=== PATIENT | male | born 1985 | race Caucasian/White ===

== ENCOUNTER 2024-09-18 09:06 | Inpatient (IN) | payer BC ==
[2024-09-18] MEDS ORDERED: LORazepam 0.5 MG TAB PO PRN (09:09)
--- NOTE | 2024-09-18 09:12 | ED ---
Recheck HPI - General Stated Complaint: withdrawl symptoms Time Seen by Provider: 09/18/24 09:09 Source: RN notes reviewed, old records reviewed Mode of arrival: ambulatory Limitations: no limitations - History of Present Illness Initial Comments: This is a 38-year-old male unable to give history secondary to clinical condition and excepted in transfer from outside facility for active DTs. Patient is hallucinating actively here in the ER, diaphoretic tachycardic and hypertensive Per EMS patient was given Ativan prior to her transfer MD Complaint: other -: unknown Returns Today for: persistent/worsening pain related to initial visit Symptoms Since Prior Visit: worsening pain Associated Symptoms: none Treatments Prior to Arrival: other - Related Data Home Medications Medication Instructions Recorded Confirmed Gabapentin [Neurontin] 300 mg PO TID 09/18/24 09/21/24 cloNIDine HCL [Catapres] 0.2 mg PO BID 09/18/24 09/21/24 hydrOXYzine pamoate [Vistaril] 50 mg PO Q6H PRN 09/18/24 09/21/24 Previous Rx's Medication Instructions Recorded Folic Acid 1 mg PO DAILY tab 09/21/24 Multivitamins, Thera [Multivitamin 1 each PO DAILY tab 09/21/24 (formulary)] Thiamine [Vitamin B-1] 100 mg PO DAILY tab 09/21/24 chlordiazePOXIDE HCl [Librium] 20 mg PO TID cap 09/21/24 Allergies Allergy/AdvReac Type Severity Reaction Status Date / Time No Known Allergies Allergy Verified 09/18/24 10:13 Review of Systems ROS Statement: Those systems with pertinent positive or pertinent negative responses have been documented in the HPI. ROS Other: All systems not noted in ROS Statement are negative. General Exam General appearance: alert, in no apparent distress Head exam: Present: atraumatic, normocephalic, normal inspection Eye exam: Present: normal appearance, PERRL, EOMI. Absent: scleral icterus, conjunctival injection, periorbital swelling ENT exam: Present: normal exam, mucous membranes moist Neck exam: Present: normal inspection. Absent: tenderness, meningismus, lymphadenopathy Respiratory exam: Present: normal lung sounds bilaterally. Absent: respiratory distress, wheezes, rales, rhonchi, stridor Cardiovascular Exam: Present: regular rate, normal rhythm, normal heart sounds. Absent: systolic murmur, diastolic murmur, rubs, gallop, clicks GI/Abdominal exam: Present: soft, normal bowel sounds. Absent: distended, tenderness, guarding, rebound, rigid Extremities exam: Present: normal inspection, full ROM, normal capillary refill. Absent: tenderness, pedal edema, joint swelling, calf tenderness Back exam: Present: normal inspection Neurological exam: Present: alert, oriented X3, CN II-XII intact Psychiatric exam: Present: normal affect, normal mood Skin exam: Present: warm, dry, intact, normal color. Absent: rash Course Vital Signs 09/18/24 09/18/24 09/18/24 09:07 10:01 10:04 Temperature 98.4 F Pulse Rate 101 H 118 H Respiratory 20 34 H 30 H Rate Blood Pressure 151/101 167/107 Blood Pressure [Right Arm] O2 Sat by Pulse 96 97 Oximetry 09/18/24 09/18/24 09/18/24 10:18 10:22 11:23 Temperature Pulse Rate 101 H 100 Respiratory 24 22 Rate Blood Pressure 152/95 137/101 Blood Pressure [Right Arm] O2 Sat by Pulse 92 L 95 99 Oximetry 09/18/24 09/18/24 09/18/24 11:48 12:47 13:15 Temperature 97.5 F L Pulse Rate 135 H 119 H Respiratory 30 H 22 26 H Rate Blood Pressure 163/118 151/89 Blood Pressure 168/112 [Right Arm] O2 Sat by Pulse 95 99 98 Oximetry 09/18/24 09/18/24 09/18/24 14:21 15:07 16:15 Temperature Pulse Rate 75 74 68 Respiratory 20 20 18 Rate Blood Pressure 150/103 143/89 143/103 Blood Pressure [Right Arm] O2 Sat by Pulse 95 98 97 Oximetry 09/18/24 09/18/24 09/18/24 17:08 18:08 20:00 Temperature 98.2 F 98.9 F Pulse Rate 65 62 Respiratory 26 H 20 12 Rate Blood Pressure 160/107 155/108 Blood Pressure 168/114 [Right Arm] O2 Sat by Pulse 97 99 99 Oximetry - Reevaluation(s) Reevaluation #1: 09/18/24 10:52 Medical records reviewed Reevaluation #2: 09/18/24 10:52 Patient symptoms difficult to control Given multiple doses of Ativan and Valium improving Given dose of phenobarbital improved Reevaluation #3: 04/02/25 10:52 Patient informed of results Reevaluation #4: Was pt. sent in by a medical professional or institution ([facility], ENTERPRISE ENGINEER, urgent care, hospital, or [facility]...) When possible be specific @ -no Did you speak to anyone other than the patient for history (EMS, parent, family, police, friend...)? What history was obtained from this source @ -no Did you review nursing and triage notes (agree or disagree)? Why? @ -agree Are old charts reviewed (outside hosp., previous admission, EMS record, old EKG, old radiological studies, urgent care reports/EKG's, [facility] records)? Report findings @ -yes Differential Diagnosis (chest pain, altered mental status, abdominal pain women, abdominal pain men, vaginal bleeding, weakness, fever, dyspnea, syncope, headache, dizziness, GI bleed, back pain, seizure, CVA, palpatations, mental health, musculoskeletal)? @ -prior EKG interpreted by me (3pts min.). @ -no X-rays interpreted by me (1pt min.). @ -no CT interpreted by me (1pt min.). @ -no U/S interpreted by me (1pt. min.). @ -no What testing was considered but not performed or refused? (CT, X-rays, U/S, labs)? Why? @ -none What meds were considered but not given or refused? Why? @ -none Did you discuss the management of the patient with other professionals (professionals i.e. DAMI Sow, ENTERPRISE ENGINEER, lab, RT, psych nurse, social and human services assistant, weapons specialist, teacher, bank officer, complex case manager)? Give summary @ -no Was smoking cessation discussed for >3mins.? @ -no Was critical care preformed (if so, how long)? @ -yes31 Were there social determinants of health that impacted care today? How? (Homelessness, low income, unemployed, alcoholism, drug addiction, transportatio n, low edu. Level, literacy, decrease access to med. care, penitentiary, rehab)? @ -none Was there de-escalation of care discussed even if they declined (Discuss DNR or withdrawal of care, Hospice)? DNR status @ -no What co-morbidities impacted this encounter? (DM, HTN, Smoking, COPD, CAD, Cancer, CVA, ARF, Chemo, Hep., AIDS, mental health diagnosis, sleep apnea, morbid obesity)? @ -none Was patient admitted / discharged? Hospital course, mention meds given and route, prescriptions, significant lab abnormalities, going to OR and other pertinent info. @ -38 male persistent and severe alcohol withdrawal delirium tremens will admit to ICU for further medical management Admitted Undiagnosed new problem with uncertain prognosis? @ -no Drug Therapy requiring intensive monitoring for toxicity (Heparin, Nitro, Insulin, Cardizem)? @ -no Were any procedures done? @ -no Diagnosis/symptom? @ -Delirium tremens Acute, or Chronic, or Acute on Chronic? @ -Acute Uncomplicated (without systemic symptoms) or Complicated (systemic symptoms)? @ -Complicated Side effects of treatment? @ -no Exacerbation, Progression, or Severe Exacerbation? @ -exacerbation Poses a threat to life or bodily function? How? (Chest pain, [place], [place], pneumonia, PE, COPD, DKA, ARF, appy, cholecystitis, CVA, Diverticulitis, Homicidal, Suicidal, threat to staff... and all critical care pts) @ -yes severe withdrawal Reevaluation #5: Differential Altered Mental Status: Hypoglycemia, DKA, hypercapnia, ETOH, overdose, CO poisoning, trauma, myxedema coma, HTN encephalopathy, infection, encephalitis, psychosis, intercranial hemorrhage, hepatic encephalopathy, meningitis, CVA, this is not meant to be an all-inclusive list - Consultations Consultation #1: Spoke with sound who agrees to admit this patient Procedures - Restraint - Face to Face Restraint Occurrence 1 Patient's Immediate Situation: Endangers self safety, Endangers others' safety, Endangers staff safety, Violent behavior Patient's Medical & Behavioral Condition: Awake, Anxious, Depressed Need to Continue or Terminate Restraint or Seclusion: Continue Face to Face Eval of Restraint Date: 09/18/24 Face to Face Eval of Restraint Time: 09:36 Restraint Occurrence 2 Patient's Immediate Situation: Endangers self safety, Endangers others' safety, Endangers staff safety, Violent behavior Patient's Reaction to the Intervention: Uncooperative, Angry, Anxious, Bizarre Patient's Medical & Behavioral Condition: Agitated Need to Continue or Terminate Restraint or Seclusion: Continue Face to Face Eval of Restraint Date: 09/18/24 Face to Face Eval of Restraint Time: 11:36 Medical Decision Making - Medical Decision Making 38 male to be admitted for severe alcohol withdrawal and DTs with active hallu cinations and delirium - Lab Data Result diagrams: 09/21/24 02:54 09/21/24 02:54 Lab Results 09/18/24 09/18/24 09/18/24 Range/Units 09:27 09:27 09:27 WBC 9.9 (3.8-10.6) k/uL RBC 4.25 L (4.30-5.90) m/uL Hgb 14.3 (13.0-17.5) gm/dL Hct 41.7 (39.0-53.0) % MCV 98.0 (80.0-100.0) fL MCH 33.6 (25.0-35.0) pg MCHC 34.3 (31.0-37.0) g/dL RDW 11.7 (11.5-15.5) % Plt Count 119 L (150-450) k/uL MPV 7.9 Neutrophils % 76 % Lymphocytes % 12 % Monocytes % 8 % Eosinophils % 2 % Basophils % 0 % Neutrophils # 7.5 (1.3-7.7) k/uL Lymphocytes # 1.2 (1.0-4.8) k/uL Monocytes # 0.8 (0-1.0) k/uL Eosinophils # 0.2 (0-0.7) k/uL Basophils # 0.0 (0-0.2) k/uL Sodium 138 (137-145) mmol/L Potassium 3.7 (3.5-5.1) mmol/L Chloride 104 (98-107) mmol/L Carbon Dioxide 25 (22-30) mmol/L Anion Gap 9 mmol/L BUN 10 (9-20) mg/dL Creatinine 0.63 L (0.66-1.25) mg/dL Est GFR (CKD-EPI)AfAm >90 (>60 ml/min/1.73 sqM) Est GFR (CKD-EPI)NonAf >90 (>60 ml/min/1.73 sqM) Glucose 103 H (74-99) mg/dL Calcium 9.1 (8.4-10.2) mg/dL Phosphorus 2.7 (2.5-4.5) mg/dL Magnesium 2.2 (1.6-2.3) mg/dL Total Bilirubin 1.6 H (0.2-1.3) mg/dL AST 100 H (17-59) U/L ALT 55 H (4-49) U/L Alkaline Phosphatase 64 (38-126) U/L Ammonia 13 (<30) umol/L Total Protein 7.2 (6.3-8.2) g/dL Albumin 4.3 (3.5-5.0) g/dL Lipase 329 H (23-300) U/L Serum Alcohol <10 mg/dL - EKG Data -: EKG Interpreted by Me (EKG is sinus 92 AZ 135 QRS 94 QTc 406) Critical Care Time Critical Care Time: Yes Total Critical Care Time: 31 Disposition Clinical Impression: Alcohol withdrawal delirium Disposition: ADMITTED IP TO THIS HOSP Condition: Stable Is patient prescribed a controlled substance at d/c from ED?: No Time of Disposition: 10:30
[2024-09-18] MEDS: LORazepam 2 MG/ML INJ IV STA ×4 (09:15→11:10)
[2024-09-18] MEDS: SODIUM CHLORIDE 0.9% 1,000 ML IV STA (09:28)
[2024-09-18 09:35] LABS: Basophils % (A) 0 %; Eosinophils # (A) 0.2 k/uL (0-0.7); Eosinophils % (A) 2 %; HCT 41.7 % (39.0-53.0); HGB 14.3 gm/dL (13.0-17.5); Lymphocytes # (A) 1.2 k/uL (1.0-4.8); Lymphocytes % (A) 12 %; MCH 33.6 pg (25.0-35.0); MCHC 34.3 g/dL (31.0-37.0); Mean Platelet Volume 7.9; Monocytes # (A) 0.8 k/uL (0-1.0); Monocytes % (A) 8 %; Neutrophils # (A) 7.5 k/uL (1.3-7.7); Neutrophils % (A) 76 %; Platelet Count 119 k/uL (150-450); RBC 4.25 m/uL (4.30-5.90); RDW 11.7 % (11.5-15.5); WBC 9.9 k/uL (3.8-10.6)
[2024-09-18] MEDS: LORazepam 2 MG/ML INJ IV PRN ×3 (09:38→17:12)
[2024-09-18 09:50] LABS: ALT 55 U/L (4-49); AST 100 U/L (17-59); African American GFR (CKD) >90 (>60 ml/min/1.73 sqM); Albumin 4.3 g/dL (3.5-5.0); Alcohol <10 mg/dL; Alkaline Phosphatase 64 U/L (38-126); Anion Gap 9 mmol/L; Blood Urea Nitrogen 10 mg/dL (9-20); Calcium 9.1 mg/dL (8.4-10.2); Carbon Dioxide 25 mmol/L (22-30); Chloride 104 mmol/L (98-107); Glucose 103 mg/dL (74-99); Lipase 329 U/L (23-300); Magnesium 2.2 mg/dL (1.6-2.3); Non-African American GFR(CKD) >90 (>60 ml/min/1.73 sqM); Phosphorus 2.7 mg/dL (2.5-4.5); Potassium 3.7 mmol/L (3.5-5.1); Sodium 138 mmol/L (137-145); Total Bilirubin 1.6 mg/dL (0.2-1.3); Total Protein 7.2 g/dL (6.3-8.2)
[2024-09-18] MEDS ORDERED: PHENobarbital SODIUM 130 MG/ML 1 ML VIAL ONE (09:59)
[2024-09-18] MEDS: PHENobarbital SODIUM 130 MG/ML 1 ML VIAL IV ONE (10:00)
[2024-09-18] MEDS: cloNIDine 0.3 MG/24HR PATCH TRANSDERM STA (10:21)
[2024-09-18] MEDS ORDERED: NALOXONE 0.4 MG/ML 1 ML VIAL IV PRN (10:45)
[2024-09-18] MEDS ORDERED: ONDANSETRON 4 MG/2 ML VIAL IVP PRN (10:45)
[2024-09-18] MEDS: DEXTROSE 5%-0.45% NACL 1,000 ML IV SCH (11:12)
[2024-09-18] MEDS: PANTOPRAZOLE 40 MG/10 ML VIAL IV SCH (11:14)
[2024-09-18] MEDS: MIDAZOLAM 1 MG/ML 5 ML VIAL IV STA (11:21)
[2024-09-18] MEDS: PHENobarbital SODIUM 130 MG/ML 1 ML VIAL IV STA (11:40)
[2024-09-18] MEDS: DEXMEDETOMIDINE/0.9% NACL(PMX) 400 MCG in EMPTY BAG 1 BAG IV SCH (12:58)
--- NOTE | 2024-09-18 13:12 | P.HPIM ---
History of Present Illness H&P Date: 09/18/24 38 year old M with PMH of EtOH abuse is transferred from [facility] for EtOH withdrawal and delirium tremens. Last drink was 3 days ago. History is limited as patient is obtunded. In the ED he underwent extensive evaluation. BP 151/101, HR 101, T 98.4F, RR 20, 96% on RA. CBC, CMP significant for RBC 4.25, Plt 119, Cr 0.63, glu 103, T. Bili 1.6, AST 100, ALT 55. Mag 2.2. Lipase 329. EtOH < 10. EKG sinus rhythm with no ST elevation. Patient given Clonidine patch, 14 mg IV Ativan, 4 mg IV Valium, 5 mg IV Versed, and 2001 mg IV Phenobarbital and admitted to ICU for further workup and management. General: toxic, no distress, appears older than stated age Derm: warm, dry Head: atraumatic, normocephalic, symmetric Mouth: no lip lesion, mucus membranes moist Cardiovascular: S1S2 tachy, no murmur Lungs: Decreased BS bilaterally, no rales , no accessory muscle use Abd: Soft, non tender to palpation Ext: no gross muscle atrophy, no edema, no contractures Neuro: Unable to determine. Psych: Obtunded Based on my assessment of this patient, this patient meets a high complexity level of care. Delirium tremens due to EtOH withdrawal: Started on Precedex drip at 0.2 mcg/kg/hr. CIWA protocol with Ativan PRN. Telemetry monitoring. Seizure precautions. Transfer to ICU. Acute metabolic encephalopathy due to above Transaminitis likely due to above: Obtain Liver GB US. Thrombocyopenia likely due to above Elevated Lipase CODE STATUS: FULL CODE. DVT Prophylaxis: Lovenox SQ GI Prophylaxis: Protonix IV QD Designated medical POA if patient is not able to make medical decisions for themselves: I have reviewed the following inside solar sales consultant notes: ED note. I have reviewed the results of the following tests: As above. I have ordered the following tests: As above. I have discussed the care of this patient with the following independent historian: I have independently interpreted the following test below: EKG. I have discussed the management of this patient with the following physician: Past Medical History Smoking Status: Unknown if ever smoked Past Alcohol Use History: Abuse, Daily, Heavy Medications and Allergies Home Medications Medication Instructions Recorded Confirmed Type Gabapentin [Neurontin] 300 mg PO TID 09/18/24 09/18/24 History cloNIDine HCL [Catapres] 0.2 mg PO BID 09/18/24 09/18/24 History hydrOXYzine pamoate [Vistaril] 50 mg PO Q6H PRN 09/18/24 09/18/24 History Allergies Allergy/AdvReac Type Severity Reaction Status Date / Time No Known Allergies Allergy Verified 09/18/24 10:13 Physical Exam Vitals: Vital Signs Temp Pulse Resp BP Pulse Ox 09/18/24 12:47 135 H 22 163/118 99 09/18/24 11:23 100 22 137/101 99 09/18/24 10:22 95 09/18/24 10:18 101 H 24 152/95 92 L 09/18/24 10:04 118 H 30 H 167/107 97 09/18/24 10:01 34 H 09/18/24 09:07 98.4 F 101 H 20 151/101 96 Intake and Output 09/17/24 09/18/24 09/18/24 22:59 06:59 14:59 Other: Weight 113.4 kg Results CBC & Chem 7: 09/18/24 09:27 09/18/24 09:27 Labs: Abnormal Lab Results - Last 24 Hours (Table) 09/18/24 09/18/24 Range/Units 09:27 09:27 RBC 4.25 L (4.30-5.90) m/uL Plt Count 119 L (150-450) k/uL Creatinine 0.63 L (0.66-1.25) mg/dL Glucose 103 H (74-99) mg/dL Total Bilirubin 1.6 H (0.2-1.3) mg/dL AST 100 H (17-59) U/L ALT 55 H (4-49) U/L Lipase 329 H (23-300) U/L
--- NOTE | 2024-09-18 15:02 | P.CNPUL ---
History of Present Illness Consult date: 09/18/24 Chief complaint: Altered mental status History of present illness: This is a 38-year-old alcoholic who was transferred from [facility] for altered mentation, delirium tremens and alcohol withdrawal. Last drink was approximately 3 days ago. At this point in time, the patient is encephalopathic and cannot volunteer any history. He was quite agitated in the emergency department. Overall, the patient was given a total of 40 mg of IV Ativan, 4 mg IV Valium, 5 mg of IV Versed and 2 g of IV phenobarbital. Subsequently, due to lack of his control of his significant agitation, the patient was started on Precedex drip which is currently running at 0.9 mcg/kg/h. ICU consultation was requested accordingly. The patient is more comfortable on Precedex. He is currently on 2 L of oxygen by nasal cannula. Slightly hypertensive. Mild sinus tachycardia. No significant respiratory distress. No seizure activity. No focal neurological deficits. The white cell count is at 9.9 with a hemoglobin 14.3 and a platelet count of 119. Sodium is at 138, bicarbonate 25, BUN is 10 with a creatinine of 0.6. LFTs are consistent with alcoholic liver disease with an AST of 100, ALT of 55 and an alkaline phosphatase of 64. Lipase level is 329. Serum alcohol is less than 10. EKG is consistent with sinus tachycardia. Patient is hemodynamically stable. Review of Systems ROS unobtainable: due to mental status Past Medical History Smoking Status: Unknown if ever smoked Past Alcohol Use History: Abuse, Daily, Heavy Medications and Allergies Home Medications Medication Instructions Recorded Confirmed Type Gabapentin [Neurontin] 300 mg PO TID 09/18/24 09/18/24 History cloNIDine HCL [Catapres] 0.2 mg PO BID 09/18/24 09/18/24 History hydrOXYzine pamoate [Vistaril] 50 mg PO Q6H PRN 09/18/24 09/18/24 History Allergies Allergy/AdvReac Type Severity Reaction Status Date / Time No Known Allergies Allergy Verified 09/18/24 10:13 Physical Exam Vitals: Vital Signs Temp Pulse Resp BP Pulse Ox 09/18/24 14:21 75 20 150/103 95 09/18/24 13:15 119 H 26 H 151/89 98 09/18/24 12:47 135 H 22 163/118 99 09/18/24 11:23 100 22 137/101 99 09/18/24 10:22 95 09/18/24 10:18 101 H 24 152/95 92 L 09/18/24 10:04 118 H 30 H 167/107 97 09/18/24 10:01 34 H 09/18/24 09:07 98.4 F 101 H 20 151/101 96 Intake and Output 09/18/24 09/18/24 09/18/24 06:59 14:59 22:59 Intake Total 18.476 Balance 18.476 Intake: Intake, IV Titration 18.476 Amount Dexmedetomidine/0.9% NaCl 18.476 (Pmx) 400 mcg In Empty Bag 1 bag @ 0.2 MCG/KG/HR 5.67 mls/hr IV .[id number] [facility] Rx#:[id number] Other: Weight 113.4 kg The patient is obese, shaky, encephalopathic, comfortable on Precedex drip, currently on 2 L of oxygen by nasal cannula Head exam is unremarkable. No scleral icterus or corneal arcus noted. Neck is without jugular venous distension, thyromegaly, or carotid bruits. Carotid upstrokes are brisk bilaterally. Lungs are clear to auscultation and percussion. Cardiac exam reveals the PMI to be normally sized and situated. Rhythm is regular. First and second heart sounds normal. No murmurs, rubs or gallops. Abdominal exam reveals normal bowel sounds, no masses, no organomegaly and no aortic enlargement. Extremities are nonedematous and both femoral and pedal pulses are normal. Examination of the skin revealed no evidence of significant rashes, suspicious appearing nevi or other concerning lesions. Neurologically, the patient is moving all 4 extremities without any limitation. He is encephalopathic and currently is in delirium tremens. Results - Laboratory Findings CBC and BMP: 09/18/24 09:27 09/18/24 09:27 Abnormal lab findings: Abnormal Labs 09/18/24 09/18/24 09:27 09:27 RBC 4.25 L Plt Count 119 L Creatinine 0.63 L Glucose 103 H Total Bilirubin 1.6 H AST 100 H ALT 55 H Lipase 329 H Assessment and Plan Plan: Delirium tremens secondary alcohol withdrawal. Last drink was around 3 days ago. The patient is presenting with significant altered mentation, encephalopathy, agitation, received Versed, Ativan and Valium and phenobarbital in the emergency department and the patient is currently on Precedex drip and he seems to be calm and comfortable. Hemodynamically stable. 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 Obesity with a BMI of 39.2 Plan Will admit the patient to the intensive care unit Will continue Precedex drip and titrate the dose based on his level of agitation and encephalopathy. IV fluids and the patient is currently on D5 half-normal saline at rate of 100 cc an hour Continue Ativan as needed per CIWA protocol IV Protonix Thiamine and folate Monitor electrolytes Lovenox for DVT prophylaxis Obtain a baseline chest x-ray Admit the patient to the ICU. Will continue to follow. Time with Patient: Greater than 30
--- NOTE | 2024-09-18 15:26 | US ---
EXAMINATION TYPE: US gallbladder DATE OF EXAM: 09/18/2024 COMPARISON: NONE CLINICAL INDICATION: Male, 38 years old with history of Transaminitis, add liver; ETOH withdrawals. TECHNIQUE: Grayscale and color Doppler imaging of the right upper quadrant was performed. FINDINGS: EXAM MEASUREMENTS: Liver Length: 17.5 cm Gallbladder Wall: 0.2 cm CBD: 0.5 cm Right Kidney: 12.6 x 5.6 x 6.0 cm SIGNALS OFFICER NOTES:Patient unable to move due to restraints, limited due to body habitus Pancreas: Head and tail obscured by overlying bowel gas. The visualized pancreatic body shows no beth ss abnormality. Liver: Echogenic and heterogenous, upper limits of normal in size Gallbladder: No discrete stones or wall thickening seen; unable to obtain LLD imaging Evidence for sonographic Gillette's sign: neg CBD: wnl Right Kidney: No hydronephrosis or masses seen IMPRESSION: 1. Borderline hepatomegaly at 17.5 cm with at least moderate hepatic steatosis. Correlate with LFTs, lipid profile, and patient risk factors. 2. No gallstones or biliary ductal dilatation. [facility], Workstation: [email or web address], 09/18/2024 3:23 PM
[2024-09-18 21:09] LABS: Glucose,Whole Blood 111 mg/dL (70-110)
[2024-09-18] MEDS ORDERED: LORazepam 1 MG/0.5 ML VIAL IV PRN (23:57)
[2024-09-19] MEDS: LORazepam 1 MG/0.5 ML VIAL IV PRN (00:53)
[2024-09-19 03:36] LABS: ALT 49 U/L (4-49); AST 78 U/L (17-59); African American GFR (CKD) >90 (>60 ml/min/1.73 sqM); Alkaline Phosphatase 61 U/L (38-126); Anion Gap 9 mmol/L; Blood Urea Nitrogen 7 mg/dL (9-20); Calcium 9.2 mg/dL (8.4-10.2); Carbon Dioxide 23 mmol/L (22-30); Chloride 106 mmol/L (98-107); Glucose 118 mg/dL (74-99); Non-African American GFR(CKD) >90 (>60 ml/min/1.73 sqM); Phosphorus 2.8 mg/dL (2.5-4.5); Potassium 3.6 mmol/L (3.5-5.1); Sodium 138 mmol/L (137-145); Total Bilirubin 1.8 mg/dL (0.2-1.3); Total Protein 6.8 g/dL (6.3-8.2)
[2024-09-19] MEDS ORDERED: Potassium Replacement Protocol 1 EACH MISC MISCELLANE PRN (03:43)
[2024-09-19 03:52] LABS: Basophils % (A) 0 %; Eosinophils # (A) 0.3 k/uL (0-0.7); Eosinophils % (A) 3 %; HCT 41.2 % (39.0-53.0); HGB 14.2 gm/dL (13.0-17.5); Lymphocytes # (A) 0.9 k/uL (1.0-4.8); Lymphocytes % (A) 9 %; MCH 34.1 pg (25.0-35.0); MCHC 34.5 g/dL (31.0-37.0); MCV 98.9 fL (80.0-100.0); Mean Platelet Volume 8.1; Monocytes # (A) 0.9 k/uL (0-1.0); Monocytes % (A) 9 %; Neutrophils # (A) 7.5 k/uL (1.3-7.7); Neutrophils % (A) 76 %; Platelet Count 123 k/uL (150-450); RBC 4.17 m/uL (4.30-5.90); RDW 11.9 % (11.5-15.5); WBC 9.8 k/uL (3.8-10.6)
[2024-09-19] MEDS: POTASSIUM CHLORIDE 10 MEQ in WATER FOR INJECTION 1 100ML.BAG IVPB SCH (04:55)
[2024-09-19] MEDS: MULTIVITAMINS, THERA 1 EACH TAB PO SCH (07:58)
[2024-09-19] MEDS: FOLIC ACID 1 MG TAB PO SCH (07:58)
[2024-09-19] MEDS: ENOXAPARIN 40 MG/0.4 ML SYRINGE SQ SCH (07:58)
--- NOTE | 2024-09-19 10:12 | XR ---
EXAMINATION TYPE: XR chest 1V portable DATE OF EXAM: 09/19/2024 9:55 AM COMPARISON: None CLINICAL INDICATION: Male, 38 years old with history of Sepsis, , FINDINGS: Heart upper limits of normal in size. Patchy interstitial densities bilaterally in the lungs. No pleu ral effusion. IMPRESSION: Suggestion of some patchy interstitial infiltrates in the lungs. Developing pneumonitis not excluded. [facility], Workstation: [facility], 09/19/2024 10:09 AM
--- NOTE | 2024-09-19 11:14 | P.PN ---
Subjective Progress Note Date: 09/19/24 38 year old M with PMH of EtOH abuse [facility] and delirium tremens. Last drink was 3 days ago. History is limited as patient is obtunded. In the ED he underwent extensive evaluation. BP 151/101, HR 101, T 98.4F, RR 20, 96% on RA. CBC, CMP significant for RBC 4.25, Plt 119, Cr 0.63, glu 103, T. Bili 1.6, AST 100, ALT 55. Mag 2.2. Lipase 329. EtOH < 10. EKG sinus rhythm with no ST elevation. Patient given Clonidine patch, 14 mg IV Ativan, 4 mg IV Valium, 5 mg IV Versed, and 2001 mg IV Phenobarbital and admitted to ICU for further workup and management. 09/19 Patient was seen and examined. Sitter at bedside. Heavily sedated. Started on Precedex drip yesterday currently running at 1mcg/kg/hr. 3 mg of IV Ativan since admission. CBC, CMP significant for RBC 4.17, Plt 123, BUN 7, Cr 0.55, glu 118, T. Bili 1.8, AST 78. Lipase 151. Liver and GB US shows hepatic steatosis. CXR shows some patchy infiltrates. General: toxic, no distress, appears older than stated age Derm: warm, dry Head: atraumatic, normocephalic, symmetric Mouth: no lip lesion, mucus membranes moist Cardiovascular: S1S2 tachy, no murmur Lungs: Decreased BS bilaterally, no rales , no accessory muscle use Abd: Soft, non tender to palpation Ext: no gross muscle atrophy, no edema, no contractures Neuro: Unable to determine. Psych: Obtunded Based on my assessment of this patient, this patient meets a high complexity level of care. Delirium tremens due to EtOH withdrawal: Precedex drip at 1 mcg/kg/hr. + Librium 20 mg PO TID. CIWA protocol with Ativan PRN. Telemetry monitoring. Seizure precautions. Deck Engineer on board. Acute metabolic encephalopathy due to above Hypertensive urgency: Likely due to EtOH withdrawal. Transaminitis likely due to above: Liver GB US shows hepatic steatosis. Thrombocyopenia likely due to above Elevated Lipase CODE STATUS: FULL CODE. DVT Prophylaxis: Lovenox SQ GI Prophylaxis: Protonix IV QD Designated medical POA if patient is not able to make medical decisions for themselves: I have reviewed the following erp implementation consultant notes: Pulmonary note. I have reviewed the results of the following tests: As above. I have ordered the following tests: I have discussed the care of this patient with the following independent historian: I have independently interpreted the following test below: CXR. I have discussed the management of this patient with the following physician: Objective - Vital Signs Vital signs: Vital Signs Temp 99.1 F 09/19/24 08:00 Pulse 55 L 09/19/24 08:00 Resp 35 H 09/19/24 08:00 BP 154/108 09/19/24 08:00 Pulse Ox 97 09/19/24 08:00 FiO2 Intake & Output 09/18/24 09/19/24 09/19/24 18:59 06:59 18:59 Intake Total 62.654 1677.643 540 Output Total 1225 650 Balance 62.654 452.643 -110 Weight 113.4 kg 106.9 kg Intake: IV 1100 300 Dextrose 5%-0.45% NaCl 1, 1100 300 000 ml @ 100 mls/hr IV . Q10H [facility] Rx#:[id number] Intake, IV Titration 62.654 577.643 Amount Dexmedetomidine/0.9% NaCl 62.654 377.643 (Pmx) 400 mcg In Empty Bag 1 bag @ 0.2 MCG/KG/HR 5.67 mls/hr IV .[id number] [facility] Rx#:[id number] Potassium Chloride 10 meq 200 In Water For Injection 1 100ml.bag @ 100 mls/hr IVPB Q1H [facility] Rx#: [id number] Oral 240 Output: Urine 1225 650 Other: Voiding Method External Catheter # Bowel Movements 0 - Labs CBC & Chem 7: 09/19/24 02:53 09/19/24 02:53 Labs: Abnormal Lab Results - Last 24 Hours (Table) 09/18/24 09/19/24 09/19/24 Range/Units 21:06 02:53 02:53 RBC 4.17 L (4.30-5.90) m/uL Plt Count 123 L (150-450) k/uL Lymphocytes # 0.9 L (1.0-4.8) k/uL BUN 7 L (9-20) mg/dL Creatinine 0.55 L (0.66-1.25) mg/dL Glucose 118 H (74-99) mg/dL POC Glucose (mg/dL) 111 H (70-110) mg/dL Total Bilirubin 1.8 H (0.2-1.3) mg/dL AST 78 H (17-59) U/L
[2024-09-19] MEDS: THIAMINE 100 MG TAB PO SCH (11:29)
[2024-09-19] MEDS: LORazepam 1 MG TAB PO PRN (14:35)
[2024-09-19] MEDS: hydrALAZINE HCL 20 MG/ML 1 ML VIAL IVP PRN (17:09)
[2024-09-19] MEDS: cloNIDine HCL 0.2 MG TAB PO STA (18:14)
--- NOTE | 2024-09-19 19:33 | P.PN ---
Subjective Progress Note Date: 09/19/24 This is a 38-year-old alcoholic who was transferred from [facility] for altered mentation, delirium tremens and alcohol withdrawal. Last drink was approximately 3 days ago. At this point in time, the patient is encephalopathic and cannot volunteer any history. He was quite agitated in the emergency department. Overall, the patient was given a total of 40 mg of IV Ativan, 4 mg IV Valium, 5 mg of IV Versed and 2 g of IV phenobarbital. Subsequently, due to lack of his control of his significant agitation, the patient was started on Precedex drip which is currently running at 0.9 mcg/kg/h. ICU consultation was requested accordingly. The patient is more comfortable on Precedex. He is currently on 2 L of oxygen by nasal cannula. Slightly hypertensive. Mild sinus tachycardia. No significant respiratory distress. No seizure activity. No focal neurological deficits. The white cell count is at 9.9 with a hemoglobin 14.3 and a platelet count of 119. Sodium is at 138, bic arbonate 25, BUN is 10 with a creatinine of 0.6. LFTs are consistent with alcoholic liver disease with an AST of 100, ALT of 55 and an alkaline phosphatase of 64. Lipase level is 329. Serum alcohol is less than 10. EKG is consistent with sinus tachycardia. Patient is hemodynamically stable. 09/19/2024, the patient is being seen for a follow-up. The patient remains an active delirium tremens. Noted, the patient was brought into the ICU yesterday for treatment of delirium tremens. This morning, the patient remains on Precedex drip which is running at 1 mcg/kg/h. Overnight, he has received 2 mg of IV Ativan and another 10 mg was given to him this morning. He continues to receive Ativan per protocol and the most recent CIWA scale from earlier this morning was around 15. The patient is on D5 half-normal saline at rate of 100 cc an hour. He is on thiamine and folate. Librium will be added. The ultrasound of the liver shows splenomegaly and hepatomegaly. The white cell count is at 9.8 with a hemoglobin of 14.2 and a platelet count of 123. BUN is at 7 with a creatinine of 0.55 and a sodium levels at 138. Potassium is at 3.6. LFTs were noted. No significant elevation. Neurologic exam is nonfocal. The patient continues to have tremors, restlessness, confusion, and no significant agitation at this point in time. Mentation remains altered. At the same time, the patient has developed increased blood pressure. Earlier this afternoon, his BP was noted to be elevated. The patient accordingly be given hydralazine 10 mg IV every 6 hours on a as needed basis. Objective - Vital Signs Vital signs: Vital Signs Temp 99.1 F 09/19/24 08:00 Pulse 55 L 09/19/24 08:00 Resp 35 H 09/19/24 08:00 BP 154/108 09/19/24 08:00 Pulse Ox 97 09/19/24 08:00 FiO2 Intake & Output 09/18/24 09/19/24 09/19/24 18:59 06:59 18:59 Intake Total 62.654 1677.643 100 Output Total 1225 0 Balance 62.654 452.643 100 Weight 113.4 kg 106.9 kg Intake: IV 1100 100 Dextrose 5%-0.45% NaCl 1, 1100 100 000 ml @ 100 mls/hr IV . Q10H [facility] Rx#:[id number] Intake, IV Titration 62.654 577.643 Amount Dexmedetomidine/0.9% NaCl 62.654 377.643 (Pmx) 400 mcg In Empty Bag 1 bag @ 0.2 MCG/KG/HR 5.67 mls/hr IV .[id number] [facility] Rx#:[id number] Potassium Chloride 10 meq 200 In Water For Injection 1 100ml.bag @ 100 mls/hr IVPB Q1H [facility] Rx#: [id number] Output: Urine 1225 0 Other: Voiding Method External Catheter - Exam The patient is obese, shaky, encephalopathic, comfortable on Precedex drip, currently on 2 L of oxygen by nasal cannula Head exam is unremarkable. No scleral icterus or corneal arcus noted. Neck is without jugular venous distension, thyromegaly, or carotid bruits. Carotid upstrokes are brisk bilaterally. Lungs are clear to auscultation and percussion. Cardiac exam reveals the PMI to be normally sized and situated. Rhythm is regular. First and second heart sounds normal. No murmurs, rubs or gallops. Abdominal exam reveals normal bowel sounds, no masses, no organomegaly and no aortic enlargement. Extremities are nonedematous and both femoral and pedal pulses are normal. Examination of the skin revealed no evidence of significant rashes, suspicious appearing nevi or other concerning lesions. Neurologically, the patient is moving all 4 extremities without any limitation. He is encephalopathic and currently is in delirium tremens. - Labs CBC & Chem 7: 09/19/24 02:53 09/19/24 02:53 Labs: Abnormal Lab Results - Last 24 Hours (Table) 09/18/24 09/18/24 09/18/24 Range/Units 09:27 09:27 21:06 RBC 4.25 L (4.30-5.90) m/uL Plt Count 119 L (150-450) k/uL Lymphocytes # (1.0-4.8) k/uL BUN (9-20) mg/dL Creatinine 0.63 L (0.66-1.25) mg/dL Glucose 103 H (74-99) mg/dL POC Glucose (mg/dL) 111 H (70-110) mg/dL Total Bilirubin 1.6 H (0.2-1.3) mg/dL AST 100 H (17-59) U/L ALT 55 H (4-49) U/L Lipase 329 H (23-300) U/L 09/19/24 09/19/24 Range/Units 02:53 02:53 RBC 4.17 L (4.30-5.90) m/uL Plt Count 123 L (150-450) k/uL Lymphocytes # 0.9 L (1.0-4.8) k/uL BUN 7 L (9-20) mg/dL Creatinine 0.55 L (0.66-1.25) mg/dL Glucose 118 H (74-99) mg/dL POC Glucose (mg/dL) (70-110) mg/dL Total Bilirubin 1.8 H (0.2-1.3) mg/dL AST 78 H (17-59) U/L ALT (4-49) U/L Lipase (23-300) U/L Assessment and Plan Plan: Delirium tremens secondary alcohol withdrawal. Last drink was around 3 days prior to his admission.. The patient is presenting with significant altered mentation, encephalopathy, agitation, received Versed, Ativan and Valium and p henobarbital in the emergency department and the patient is currently on Precedex drip and he seems to be calm and comfortable. Hemodynamically stable. The patient remains on Precedex drip. The patient is also on Ativan per CIWA protocol. Continues to be in active delirium tremens. CIWA scale is at 15. 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 Obesity with a BMI of 39.2 Plan Keep the patient in the intensive care unit Sitter at the bedside Will continue Precedex drip and titrate the dose based on his level of agitation and encephalopathy. Start Librium 20 mg p.o. 3 times daily Continue Ativan IV fluids and the patient is currently on D5 half-normal saline at rate of 100 cc an hour Continue Ativan as needed per CIWA protocol IV Protonix Thiamine and folate Monitor electrolytes Lovenox for DVT prophylaxis Will keep the patient in the intensive care unit for now Will continue to follow. Time with Patient: Greater than 30
[2024-09-20] MEDS: LORazepam 1 MG TAB PO PRN ×2 (00:56→14:38)
[2024-09-20 03:57] LABS: Basophils # (A) 0.1 k/uL (0-0.2); Basophils % (A) 1 %; Eosinophils # (A) 0.3 k/uL (0-0.7); Eosinophils % (A) 4 %; Lymphocytes % (A) 10 %; MCH 33.5 pg (25.0-35.0); MCHC 34.2 g/dL (31.0-37.0); MCV 98.1 fL (80.0-100.0); Monocytes # (A) 0.7 k/uL (0-1.0); Monocytes % (A) 7 %; Neutrophils % (A) 76 %; Platelet Count 145 k/uL (150-450); RBC 4.18 m/uL (4.30-5.90); RDW 11.8 % (11.5-15.5); WBC 9.2 k/uL (3.8-10.6)
[2024-09-20 04:27] LABS: African American GFR (CKD) >90 (>60 ml/min/1.73 sqM); Anion Gap 10 mmol/L; Blood Urea Nitrogen 6 mg/dL (9-20); Calcium 9.1 mg/dL (8.4-10.2); Carbon Dioxide 22 mmol/L (22-30); Chloride 102 mmol/L (98-107); Glucose 113 mg/dL (74-99); Magnesium 1.9 mg/dL (1.6-2.3); Non-African American GFR(CKD) >90 (>60 ml/min/1.73 sqM); Potassium 3.1 mmol/L (3.5-5.1); Sodium 134 mmol/L (137-145)
[2024-09-20] MEDS ORDERED: Magnesium Replacement Protocol 1 EACH MISC MISCELLANE PRN (04:58)
[2024-09-20] MEDS: MAGNESIUM SULFATE-D5W PMX 1 GM in DEXTROSE/WATER 1 100ML.BAG IVPB ONE (05:54)
[2024-09-20] MEDS: POTASSIUM CHLORIDE ER 20 MEQ TAB.ER PO SCH (05:54)
[2024-09-20 08:03] LABS: ALT 36 U/L (4-49); AST 45 U/L (17-59)
--- NOTE | 2024-09-20 12:54 | P.PN ---
Subjective Progress Note Date: 09/20/24 38 year old M with PMH of EtOH abuse is transferred from [facility] for EtOH withdrawal and delirium tremens. Last drink was 3 days ago. History is limited as patient is obtunded. In the ED he underwent extensive evaluation. BP 151/101, HR 101, T 98.4F, RR 20, 96% on RA. CBC, CMP significant for RBC 4.25, Plt 119, Cr 0.63, glu 103, T. Bili 1.6, AST 100, ALT 55. Mag 2.2. Lipase 329. EtOH < 10. EKG sinus rhythm with no ST elevation. Patient given Clonidine patch, 14 mg IV Ativan, 4 mg IV Valium, 5 mg IV Versed, and 2001 mg IV Phenobarbital and admitted to ICU for further workup and management. 09/19 Patient was seen and examined. Sitter at bedside. Heavily sedated. Started on Precedex drip yesterday currently running at 1mcg/kg/hr. 3 mg of IV Ativan since admission. CBC, CMP significant for RBC 4.17, Plt 123, BUN 7, Cr 0.55, glu 118, T. Bili 1.8, AST 78. Lipase 151. Liver and GB US shows hepatic steatosis. CXR shows some patchy infiltrates. 09/20 Patient was seen and examined. Sitter at bedside. Much more awake and alert. Currently on Precedex drip running at 0.3 mcg/kg/hr. 8 mg IV Ativan over the past 24H. CBC, CMP significant for RBC 4.18, Plt 145, Na 134, K 3.1, BUN 6, Cr 0.54, glu 113. General: toxic, no distress, appears older than stated age Derm: warm, dry Head: atraumatic, normocephalic, symmetric Mouth: no lip lesion, mucus membranes moist Cardiovascular: S1S2 tachy, no murmur Lungs: Decreased BS bilaterally, no rales , no accessory muscle use Abd: Soft, non tender to palpation Ext: no gross muscle atrophy, no edema, no contractures Neuro: Unable to determine. Psych: Obtunded Based on my assessment of this patient, this patient meets a high complexity level of care. Delirium tremens due to EtOH withdrawal: Precedex drip at 0.3 mcg/kg/hr. + Librium 20 mg PO TID. CIWA protocol with Ativan PRN. Telemetry monitoring. Seizure precautions. Ui Software Developer on board. Acute metabolic encephalopathy due to above Hypokalemia: KCl 40 meq PO x 1, Mag sulfate 1g IV x 1. Repeat labs in the AM. Hypertensive urgency: BP 145/93 HR 72. Likely due to EtOH withdrawal. Hydralazine 10 mg IV Q6H PRN with parameters. Transaminitis likely due to above: Liver GB US shows hepatic steatosis. Thrombocyopenia likely due to above Resolved: Elevated Lipase CODE STATUS: FULL CODE. DVT Prophylaxis: Lovenox SQ GI Prophylaxis: Protonix IV QD Designated medical POA if patient is not able to make medical decisions for themselves: I have reviewed the following medical sales consultant notes: Pulmonary note. I have reviewed the results of the following tests: CBC, CMP. I have ordered the following tests: I have discussed the care of this patient with the following independent historian: AMRIT I have independently interpreted the following test below: I have discussed the management of this patient with the following physician: Objective - Vital Signs Vital signs: Vital Signs Temp 98.0 F 09/20/24 08:00 Pulse 72 09/20/24 11:00 Resp 24 09/20/24 11:00 BP 145/93 09/20/24 11:00 Pulse Ox 94 L 09/20/24 11:00 FiO2 Intake & Output 09/19/24 09/20/24 09/20/24 18:59 06:59 18:59 Intake Total 2914.5 1300 1148.009 Output Total 1500 2550 1000 Balance 1414.5 -1250 148.009 Weight 108.3 kg Intake: IV 1340 1100 450 Dextrose 5%-0.45% NaCl 1, 1300 1100 450 000 ml @ 50 mls/hr IV . Q20H [facility] Rx#:[id number] Invasive Line 1 20 Invasive Line 3 20 Intake, IV Titration 294.5 200 178.009 Amount Dexmedetomidine/0.9% NaCl 294.5 200 178.009 (Pmx) 400 mcg In Empty Bag 1 bag @ 0.2 MCG/KG/HR 5.67 mls/hr IV .[id number] [facility]N Rx#:[id number] Oral 1280 520 Output: Urine 1500 2550 1000 Other: Voiding Method External Catheter External Catheter External Catheter # Bowel Movements 0 0 1 - Labs CBC & Chem 7: 09/20/24 03:19 09/20/24 03:19 Labs: Abnormal Lab Results - Last 24 Hours (Table) 09/20/24 09/20/24 Range/Units 03:19 03:19 RBC 4.18 L (4.30-5.90) m/uL Plt Count 145 L (150-450) k/uL Sodium 134 L (137-145) mmol/L Potassium 3.1 L (3.5-5.1) mmol/L BUN 6 L (9-20) mg/dL Creatinine 0.54 L (0.66-1.25) mg/dL Glucose 113 H (74-99) mg/dL
--- NOTE | 2024-09-20 13:58 | P.PN ---
Subjective Progress Note Date: 09/20/24 This is a 38-year-old alcoholic who was transferred from [facility] for altered mentation, delirium tremens and alcohol withdrawal. Last drink was approximately 3 days ago. At this point in time, the patient is encephalopathic and cannot volunteer any history. He was quite agitated in the emergency department. Overall, the patient was given a total of 40 mg of IV Ativan, 4 mg IV Valium, 5 mg of IV Versed and 2 g of IV phenobarbital. Subsequently, due to lack of his control of his significant agitation, the patient was started on Precedex drip which is currently running at 0.9 mcg/kg/h. ICU consultation was requested accordingly. The patient is more comfortable on Precedex. He is currently on 2 L of oxygen by nasal cannula. Slightly hypertensive. Mild sinus tachycardia. No significant respiratory distress. No seizure activity. No focal neurological deficits. The white cell count is at 9.9 with a hemoglobin 14.3 and a platelet count of 119. Sodium is at 138, bic arbonate 25, BUN is 10 with a creatinine of 0.6. LFTs are consistent with alcoholic liver disease with an AST of 100, ALT of 55 and an alkaline phosphatase of 64. Lipase level is 329. Serum alcohol is less than 10. EKG is consistent with sinus tachycardia. Patient is hemodynamically stable. 09/19/2024, the patient is being seen for a follow-up. The patient remains an active delirium tremens. Noted, the patient was brought into the ICU yesterday for treatment of delirium tremens. This morning, the patient remains on Precedex drip which is running at 1 mcg/kg/h. Overnight, he has received 2 mg of IV Ativan and another 10 mg was given to him this morning. He continues to receive Ativan per protocol and the most recent CIWA scale from earlier this morning was around 15. The patient is on D5 half-normal saline at rate of 100 cc an hour. He is on thiamine and folate. Librium will be added. The ultrasound of the liver shows splenomegaly and hepatomegaly. The white cell count is at 9.8 with a hemoglobin of 14.2 and a platelet count of 123. BUN is at 7 with a creatinine of 0.55 and a sodium levels at 138. Potassium is at 3.6. LFTs were noted. No significant elevation. Neurologic exam is nonfocal. The patient continues to have tremors, restlessness, confusion, and no significant agitation at this point in time. Mentation remains altered. At the same time, the patient has developed increased blood pressure. Earlier this afternoon, his BP was noted to be elevated. The patient accordingly be given hydralazine 10 mg IV every 6 hours on a as needed basis. On 09/20/2024, the patient is arousable and is able to communicate. Remains lethargic. Times confused. No significant agitation while being on Precedex which is currently running at 0.5 mcg/kg/h. Most recent CIWA scale was at 8. Given 2 mg of Ativan overnight. He is also on Librium 20 mg p.o. 3 times daily. Hemodynamically stable. No significant respiratory distress. He is on D5 half-normal saline at rate of 100 cc an hour. No chest pain. No shortness of breath. No focal neurological deficits. White cell count is at 9.2 with a hemoglobin 14 and platelet count of 145. Sodium is at 134, potassium level is at 3.1, BUN is at 6 with a creatinine 0.5. Objective - Vital Signs Vital signs: Vital Signs Temp 98.0 F 09/20/24 08:00 Pulse 66 09/20/24 09:00 Resp 24 09/20/24 09:00 BP 135/75 09/20/24 09:00 Pulse Ox 95 09/20/24 09:00 FiO2 Intake & Output 09/19/24 09/20/24 09/20/24 18:59 06:59 18:59 Intake Total 2914.5 1300 972.731 Output Total 1500 2550 550 Balance 1414.5 -1250 422.731 Weight 108.3 kg Intake: IV 1340 1100 300 Dextrose 5%-0.45% NaCl 1, 1300 1100 300 000 ml @ 100 mls/hr IV . Q10H [facility] Rx#:[id number] Invasive Line 1 20 Invasive Line 3 20 Intake, IV Titration 294.5 200 152.731 Amount Dexmedetomidine/0.9% NaCl 294.5 200 152.731 (Pmx) 400 mcg In Empty Bag 1 bag @ 0.2 MCG/KG/HR 5.67 mls/hr IV .[id number] [facility] Rx#:[id number] Oral 1280 520 Output: Urine 1500 2550 550 Other: Voiding Method External Catheter External Catheter External Catheter # Bowel Movements 0 0 0 - Exam The patient is obese, shaky, encephalopathic, comfortable on Precedex drip, currently on room air oxygen Head exam is unremarkable. No scleral icterus or corneal arcus noted. Neck is without jugular venous distension, thyromegaly, or carotid bruits. Carotid upstrokes are brisk bilaterally. Lungs are clear to auscultation and percussion. Cardiac exam reveals the PMI to be normally sized and situated. Rhythm is regular. First and second heart sounds normal. No murmurs, rubs or gallops. Abdominal exam reveals normal bowel sounds, no masses, no organomegaly and no aortic enlargement. Extremities are nonedematous and both femoral and pedal pulses are normal. Examination of the skin revealed no evidence of significant rashes, suspicious appearing nevi or other concerning lesions. Neurologically, the patient is moving all 4 extremities without any limitation. He is lower degree of encephalopathy/DT. CIWA scale is at 8. - Labs CBC & Chem 7: 09/20/24 03:19 09/20/24 03:19 Labs: Abnormal Lab Results - Last 24 Hours (Table) 09/20/24 09/20/24 Range/Units 03:19 03:19 RBC 4.18 L (4.30-5.90) m/uL Plt Count 145 L (150-450) k/uL Sodium 134 L (137-145) mmol/L Potassium 3.1 L (3.5-5.1) mmol/L BUN 6 L (9-20) mg/dL Creatinine 0.54 L (0.66-1.25) mg/dL Glucose 113 H (74-99) mg/dL Assessment and Plan Plan: Delirium tremens secondary alcohol withdrawal. Last drink was around 3 days prior to his admission.. The patient is presenting with significant altered mentation, encephalopathy, agitation, received Versed, Ativan and Valium and phenobarbital in the emergency department and the patient is currently on Precedex drip and he seems to be calm and comfortable. Precedex is currently running at 0.5 mcg/kg/h and is being gradually weaned off. Hemodynamically stable. The patient is also on Ativan per CIWA protocol. Continues to be in active delirium tremens. 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 Levels have been improving. Obesity with a BMI of 39.2 Plan Keep the patient in the intensive care unit Sitter at the bedside Will continue Precedex drip and titrate the dose based on his level of agitation and encephalopathy. The prostate has been gradually weaned off Continue Librium 20 mg p.o. 3 times daily Continue Ativan per CIWA protocol IV fluids and the patient is currently on D5 half-normal saline at rate of 50 cc an hour Continue Ativan as needed per CIWA protocol IV Protonix Thiamine and folate Monitor electrolytes and replace potassium Lovenox for DVT prophylaxis Will keep the patient in the intensive care unit for now Will continue to follow. Time with Patient: Greater than 30
[2024-09-21 03:19] LABS: Basophils # (A) 0.1 k/uL (0-0.2); Basophils % (A) 1 %; Eosinophils # (A) 0.1 k/uL (0-0.7); Eosinophils % (A) 1 %; HCT 42.5 % (39.0-53.0); HGB 14.4 gm/dL (13.0-17.5); Lymphocytes # (A) 1.2 k/uL (1.0-4.8); Lymphocytes % (A) 13 %; MCH 33.6 pg (25.0-35.0); MCHC 33.9 g/dL (31.0-37.0); Monocytes # (A) 1.3 k/uL (0-1.0); Monocytes % (A) 14 %; Neutrophils # (A) 6.6 k/uL (1.3-7.7); Neutrophils % (A) 69 %; Platelet Count 189 k/uL (150-450); RBC 4.29 m/uL (4.30-5.90); RDW 12.1 % (11.5-15.5); WBC 9.5 k/uL (3.8-10.6)
[2024-09-21 03:37] LABS: African American GFR (CKD) >90 (>60 ml/min/1.73 sqM); Anion Gap 11 mmol/L; Blood Urea Nitrogen 6 mg/dL (9-20); Calcium 9.5 mg/dL (8.4-10.2); Carbon Dioxide 22 mmol/L (22-30); Chloride 104 mmol/L (98-107); Glucose 99 mg/dL (74-99); Magnesium 2.1 mg/dL (1.6-2.3); Non-African American GFR(CKD) >90 (>60 ml/min/1.73 sqM); Potassium 3.5 mmol/L (3.5-5.1); Sodium 137 mmol/L (137-145)
[2024-09-21] MEDS: POTASSIUM CHLORIDE ER 20 MEQ TAB.ER PO SCH (05:41)
[2024-09-21] MEDS ORDERED: POTASSIUM CHLORIDE ER 20 MEQ TAB.ER PO SCH (06:00)
[2024-09-21 08:04] VITALS: PULSE 94
[2024-09-21] MEDS: cloNIDine HCL 0.1 MG TAB PO SCH (09:47)
--- NOTE | 2024-09-21 10:31 | P.PN ---
Subjective Progress Note Date: 09/21/24 38 year old M with PMH of EtOH abuse is transferred from [facility] for EtOH withdrawal and delirium tremens. Last drink was 3 days ago. History is limited as patient is obtunded. In the ED he underwent extensive evaluation. BP 151/101, HR 101, T 98.4F, RR 20, 96% on RA. CBC, CMP significant for RBC 4.25, Plt 119, Cr 0.63, glu 103, T. Bili 1.6, AST 100, ALT 55. Mag 2.2. Lipase 329. EtOH < 10. EKG sinus rhythm with no ST elevation. Patient given Clonidine patch, 14 mg IV Ativan, 4 mg IV Valium, 5 mg IV Versed, and 2001 mg IV Phenobarbital and admitted to ICU for further workup and management. Started on Precedex drip and given Ativan per CIWA protocol. Precedex weaned off 09/20. 09/21 Patient was seen and examined. Sitter at bedside. Much more awake and alert. Discussed with RN and case management yesterday, patient has recently lost his job and gotten . He has made threats of suicide prior to admission and has guns at home. 6 mg IV Ativan over the past 24H. CBC, CMP significant for RBC 4.29, BUN 6, Cr 0.62. Mag 2.1. General: toxic, no distress, appears older than stated age Derm: warm, dry Head: atraumatic, normocephalic, symmetric Mouth: no lip lesion, mucus membranes moist Cardiovascular: S1S2 tachy, no murmur Lungs: Decreased BS bilaterally, no rales , no accessory muscle use Abd: Soft, non tender to palpation Ext: no gross muscle atrophy, no edema, no contractures Neuro: No focal neurologic deficits. Psych: Alert and oriented. Flat affect. Based on my assessment of this patient, this patient meets a high complexity level of care. Delirium tremens due to EtOH withdrawal: Weaned off Precedex 09/20. Librium 20 mg PO TID. CIWA protocol with Ativan PRN. Telemetry monitoring. Seizure precautions. Children'S Nursery Assistant on board. Acute metabolic encephalopathy due to above Suicidal ideation: Suicidal precautions. Sitter. Psychiatry consulted. Hypertensive urgency: BP 142/108 HR 94. Likely due to EtOH withdrawal. Hydralazine 10 mg IV Q6H PRN with parameters. Clonidine 0.1 mg PO BID. Transaminitis likely due to above: Liver GB US shows hepatic steatosis. Thrombocyopenia likely due to above Resolved: Elevated Lipase, HypoK, HypoMag CODE STATUS: FULL CODE. DVT Prophylaxis: Lovenox SQ GI Prophylaxis: Protonix IV QD Designated medical POA if patient is not able to make medical decisions for themselves: I have reviewed the following it architecture consultant notes: Pulmonary note. I have reviewed the results of the following tests: CBC, CMP. I have ordered the following tests: I have discussed the care of this patient with the following independent historian: RN, Case management. I have independently interpreted the following test below: I have discussed the management of this patient with the following physician: Objective - Vital Signs Vital signs: Vital Signs Temp 98.0 F 09/21/24 08:00 Pulse 94 09/21/24 08:00 Resp 29 H 09/21/24 08:00 BP 142/108 09/21/24 08:00 Pulse Ox 96 09/21/24 08:00 FiO2 Intake & Output 09/20/24 09/21/24 09/21/24 18:59 06:59 18:59 Intake Total 1985.019 600 50 Output Total 1550 1050 0 Balance 435.019 -450 50 Intake: IV 750 600 50 Dextrose 5%-0.45% NaCl 1, 750 600 50 000 ml @ 50 mls/hr IV . Q20H HERNAN Rx#:[id number] Intake, IV Titration 195.019 Amount Dexmedetomidine/0.9% NaCl 195.019 (Pmx) 400 mcg In Empty Bag 1 bag @ 0.2 MCG/KG/HR 5.67 mls/hr IV .[id number] HERNAN Rx#:[id number] Oral 1040 Output: Urine 1550 1050 0 Other: Voiding Method Urinal Urinal # Bowel Movements 0 0 0 - Labs CBC & Chem 7: 09/21/24 02:54 09/21/24 02:54 Labs: Abnormal Lab Results - Last 24 Hours (Table) 09/21/24 09/21/24 Range/Units 02:54 02:54 RBC 4.29 L (4.30-5.90) m/uL Monocytes # 1.3 H (0-1.0) k/uL BUN 6 L (9-20) mg/dL Creatinine 0.62 L (0.66-1.25) mg/dL
--- NOTE | 2024-09-21 12:48 | P.PN ---
Subjective Progress Note Date: 09/21/24 This is a 38-year-old alcoholic who was transferred from [facility] for altered mentation, delirium tremens and alcohol withdrawal. Last drink was approximately 3 days ago. At this point in time, the patient is encephalopathic and cannot volunteer any history. He was quite agitated in the emergency department. Overall, the patient was given a total of 40 mg of IV Ativan, 4 mg IV Valium, 5 mg of IV Versed and 2 g of IV phenobarbital. Subsequently, due to lack of his control of his significant agitation, the patient was started on Precedex drip which is currently running at 0.9 mcg/kg/h. ICU consultation was requested accordingly. The patient is more comfortable on Precedex. He is currently on 2 L of oxygen by nasal cannula. Slightly hypertensive. Mild sinus tachycardia. No significant respiratory distress. No seizure activity. No focal neurological deficits. The white cell count is at 9.9 with a hemoglobin 14.3 and a platelet count of 119. Sodium is at 138, bic arbonate 25, BUN is 10 with a creatinine of 0.6. LFTs are consistent with alcoholic liver disease with an AST of 100, ALT of 55 and an alkaline phosphatase of 64. Lipase level is 329. Serum alcohol is less than 10. EKG is consistent with sinus tachycardia. Patient is hemodynamically stable. 09/19/2024, the patient is being seen for a follow-up. The patient remains an active delirium tremens. Noted, the patient was brought into the ICU yesterday for treatment of delirium tremens. This morning, the patient remains on Precedex drip which is running at 1 mcg/kg/h. Overnight, he has received 2 mg of IV Ativan and another 10 mg was given to him this morning. He continues to receive Ativan per protocol and the most recent CIWA scale from earlier this morning was around 15. The patient is on D5 half-normal saline at rate of 100 cc an hour. He is on thiamine and folate. Librium will be added. The ultrasound of the liver shows splenomegaly and hepatomegaly. The white cell count is at 9.8 with a hemoglobin of 14.2 and a platelet count of 123. BUN is at 7 with a creatinine of 0.55 and a sodium levels at 138. Potassium is at 3.6. LFTs were noted. No significant elevation. Neurologic exam is nonfocal. The patient continues to have tremors, restlessness, confusion, and no significant agitation at this point in time. Mentation remains altered. At the same time, the patient has developed increased blood pressure. Earlier this afternoon, his BP was noted to be elevated. The patient accordingly be given hydralazine 10 mg IV every 6 hours on a as needed basis. On 09/20/2024, the patient is arousable and is able to communicate. Remains lethargic. Times confused. No significant agitation while being on Precedex which is currently running at 0.5 mcg/kg/h. Most recent CIWA scale was at 8. Given 2 mg of Ativan overnight. He is also on Librium 20 mg p.o. 3 times daily. Hemodynamically stable. No significant respiratory distress. He is on D5 half-normal saline at rate of 100 cc an hour. No chest pain. No shortness of breath. No focal neurological deficits. White cell count is at 9.2 with a hemoglobin 14 and platelet count of 145. Sodium is at 134, potassium level is at 3.1, BUN is at 6 with a creatinine 0.5. On 09/21/2024, the patient is being seen for a follow-up. The patient has been off Precedex since 3 PM. He is showing signs of depression and he has some suicidal ideation. Based on that, he has a sitter at the bedside and psychiatric consultation has been requested. Neurologically, improved and the patient is not having any shakes or confusion or tremor or hallucinations or any delusions. He remains on Librium 20 mg p.o. 3 times daily. He is on Ativan per [facility] protocol. No fever. No respiratory distress. Hemodynamically stable. White cell count of 9.5, hemoglobin 14.4 and platelet count of 189. Sodium is at 137, BUN 6 with a creatinine of 0.6. Rest of the electrolytes are all within normal limits. The patient denies having any specific complaints. Tolerating his diet. Remains on Lovenox for DVT prophylaxis. Remains on IV Protonix. Remains on thiamine. Blood pressure is under better control and the patient is currently on clonidine. Objective - Vital Signs Vital signs: Vital Signs Temp 98.0 F 09/21/24 08:00 Pulse 94 09/21/24 08:00 Resp 29 H 09/21/24 08:00 BP 142/108 09/21/24 08:00 Pulse Ox 96 09/21/24 08:00 FiO2 Intake & Output 09/20/24 09/21/24 09/21/24 18:59 06:59 18:59 Intake Total 1985.019 600 50 Output Total 1550 1050 0 Balance 435.019 -450 50 Intake: IV 750 600 50 Dextrose 5%-0.45% NaCl 1, 750 600 50 000 ml @ 50 mls/hr IV . Q20H HERNAN Rx#:[id number] Intake, IV Titration 195.019 Amount Dexmedetomidine/0.9% NaCl 195.019 (Pmx) 400 mcg In Empty Bag 1 bag @ 0.2 MCG/KG/HR 5.67 mls/hr IV .[id number] HERNAN Rx#:[id number] Oral 1040 Output: Urine 1550 1050 0 Other: Voiding Method Urinal Urinal # Bowel Movements 0 0 0 - Exam The patient is obese, on room air oxygen,, comfortable Head exam is unremarkable. No scleral icterus or corneal arcus noted. Neck is without jugular venous distension, thyromegaly, or carotid bruits. Carotid upstrokes are brisk bilaterally. Lungs are clear to auscultation and percussion. Cardiac exam reveals the PMI to be normally sized and situated. Rhythm is regular. First and second heart sounds normal. No murmurs, rubs or gallops. Abdominal exam reveals normal bowel sounds, no masses, no organomegaly and no ao rtic enlargement. Extremities are nonedematous and both femoral and pedal pulses are normal. Examination of the skin revealed no evidence of significant rashes, suspicious appearing nevi or other concerning lesions. Neurologically, the patient is moving all 4 extremities without any limitation. Neurologically, the patient is awake and alert and the patient does not have any focal neurological deficit. Cranial nerves are essentially intact. - Labs CBC & Chem 7: 09/21/24 02:54 09/21/24 02:54 Labs: Abnormal Lab Results - Last 24 Hours (Table) 09/21/24 09/21/24 Range/Units 02:54 02:54 RBC 4.29 L (4.30-5.90) m/uL Monocytes # 1.3 H (0-1.0) k/uL BUN 6 L (9-20) mg/dL Creatinine 0.62 L (0.66-1.25) mg/dL Assessment and Plan Plan: Delirium tremens secondary alcohol withdrawal. Clinically improved and the patient is currently on Librium. The patient is off Precedex. Alcoholism Sinus tachycardia, improved Mild transaminitis secondary to chronic liver disease Thrombocytopenia, likely secondary alcoholism Mild pancreatitis, mild elevation of the lipase. Levels have been improving. Obesity with a BMI of 39.2 Hypertension, currently on clonidine. Plan IV fluids to KVO Continue Librium Continue Ativan as needed per CIWA protocol IV Protonix Thiamine and folate Clonidine 0.1 mg p.o. twice a day Monitor electrolytes and replace potassium Lovenox for DVT prophylaxis Patient can be transferred out of the intensive care unit Will continue to follow. Time with Patient: Greater than 30
--- NOTE | 2024-09-21 14:21 | P.CN ---
Psychiatric Consult - . Consult date: 09/21/24 Consult:: 09/21/24 12:34 IDENTIFYING DATA: This patient is a 38-year-old male, he is , he has 2 kids, he currently lives with his mother in a house, he is unemployed REASON FOR REFERRAL: Psychiatry was consulted for depression suicidal ideations, access to guns weapons HISTORY OF PRESENT ILLNESS: The patient presented to the hospital initially on 09/18 as a transfer from [facility]. Patient was apparently in active de lirium tremens, hallucinating severe withdrawals. Patient required restraints twice according to ER report. Theater Technician spoke with patient at the bedside who states that he had a recent job loss, financial difficulties, also endorsing a recent divorce. Claims that he made suicidal threats however was minimizing them. Patient's LFTs were elevated initially however has been improving. He also describes drinking alcohol, more frequently lately, claims that he tried to stop using alcohol on his own his last drink was last Monday a week ago. Claims that he was drinking about a half a gallon of liquor every other day. Also claims that he has been having more depression anxiety lately, claims that the withdrawal symptoms have been improving. He was minimizing his alcohol use, minimizing his mental health condition and his stressors. Claims that his sleep and appetite have been poor lately, he appeared to be fairly disheveled in appearance, poor hygiene and grooming. At this time patient attempted to minimize his suicidal ideations, denies any homical ideations, intent or plan. Patient denies any current auditory, visual hallucinations and denies any paranoia or delusions. Patients admits to using alcohol as noted above, also claims he smokes marijuana occasionally and also vapes nicotine products. PAST PSYCHIATRIC HISTORY: Patient has a a history of depression anxiety. Patient denies being on any psychiatric medications. Patient denies any previous psychiatric hospitalizations. Patient denies any psychiatric outpatient follow-up. Patient denies any history of suicide attempts in the past. Patient claims that he does have access to guns and weapons at home and states that he is the only one the [place]. PAST MEDICAL HISTORY: As per medical H&P ALLERGIES: as per EMR. CHEMICAL DEPENDENCY HISTORY: as per HPI. FAMILY PSYCHIATRIC/SUBSTANCE USE HISTORY: Denies SOCIAL HISTORY: Patient was born and raised in [facility]. 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 He lives with his mother in a house. He has 2 kids, he is . Denies any legal history. MENTAL STATUS EXAM: General Appearance: Patient appears to be overweight, unshaven, disheveled appearance, wearing glasses, stated age is alert, pleasant, and cooperative. Patient appears to have poor hygiene and grooming wearing hospital gown with fair eye contact. Behavior: Patient is calmly lying in bed without any agitated behavior. Minimizing Speech: Patient's speech is fluent and nonpressured. [place] Mood/Affect: Patient reports their mood is "depressed and anxious", affect is congruent and constricted Suicidality/Homicidality: Patient denies having any suicidal or homicidal ideation intent or plan. Minimizing his suicidal ideations and suicidal threat Perceptions: Patient denies any visual hallucinations and denies any auditory hallucinations Though content/process: There is no evidence of any delusional thought content and thought process is linear and goal-directed. Minimizing, fairly guarded to evasive. Memory and concentration: AOX3, grossly intact for the purposes of this session. Can spell "WORLD" backwards Judgment and insight: Poor IMPRESSIONS: Major depressive disorder, without psychotic features Alcohol use disorder, severe dependence, currently in withdrawal Cannabis use disorder, mild Nicotine dependence PLAN: -At this time patient DOES meet criteria for inpatient psychiatric admission. -Would recommend the following medication changes/additions: Continue with Librium scheduled for alcohol withdrawal and will continue to taper down. Will hold off on antidepressants and/or other psychiatric medications until patient is medically cleared and transferred to the mental health unit -[facility] protocol with PRN Ativan for alcohol withdrawal. Continue to monitor vital signs. -Continue 1:1 sitter for safety until patient is transferred to MHU. -Cannot leave AMA at this time. Patient will need a petition and certification if attempting to leave AMA. -Theater Technician spoke with patient about substance abuse and the harmful effects on medical and mental health, patient verbally understood and agreed. -When medically stable, patient is eligible for transfer to a psych bed when available. -Communicated plan to patient's nurse -Psychiatry will sign off at this time -Please contact with any questions. 09/21/24 14:14 09/21/24 14:21
[2024-09-21 16:03] VITALS: BP 143/116; RESP 24; TEMP 98.4
--- NOTE | 2024-09-21 17:15 | P.DS ---
Providers Date of admission: 09/18/24 10:51 Expected date of discharge: 09/21/24 Attending physician: Tony Hernandez MD Consults: 09/18/24 11:31 Consult Physician Routine Consulting Provider: Isabelle Bertrand Consult Reason/Comments: icu Do you want consulting provider notified?: Yes 09/20/24 15:17 Consult Physician Urgent Consulting Provider: Jaswinder Lopez Consult Reason/Comments: depression, suicidal ideation, access to guns, possible homeless Do you want consulting provider notified?: Yes Primary care physician: Stated None Hospital Course: 38 year old M with PMH of EtOH abuse is transferred from [facility] for EtOH withdrawal and delirium tremens. Last drink was 3 days ago. History is limited as patient is obtunded. In the ED he underwent extensive evaluation. BP 151/101, HR 101, T 98.4F, RR 20, 96% on RA. CBC, CMP significant for RBC 4.25, Plt 119, Cr 0.63, glu 103, T. Bili 1.6, AST 100, ALT 55. Mag 2.2. Lipase 329. EtOH < 10. EKG sinus rhythm with no ST elevation. Patient given Clonidine patch, 14 mg IV Ativan, 4 mg IV Valium, 5 mg IV Versed, and 2001 mg IV Phenobarbital and admitted to ICU for further workup and management. Started on Precedex drip and given Ativan per [facility] protocol. Precedex weaned off 09/20. 09/21 Patient was seen and examined. Sitter at bedside. Much more awake and alert. Discussed with RN and case management yesterday, patient has recently lost his job and gotten . He has made threats of suicide prior to admission and has guns at home. 6 mg IV Ativan over the past 24H. CBC, CMP significant for RBC 4.29, BUN 6, Cr 0.62. Mag 2.1. Evaluated by Psyc recommending inpatient psyc. He is medically cleared for transfer to MHU. General: toxic, no distress, appears older than stated age Derm: warm, dry Head: atraumatic, normocephalic, symmetric Mouth: no lip lesion, mucus membranes moist Cardiovascular: S1S2 tachy, no murmur Lungs: Decreased BS bilaterally, no rales , no accessory muscle use Abd: Soft, non tender to palpation Ext: no gross muscle atrophy, no edema, no contractures Neuro: No focal neurologic deficits. Psych: Alert and oriented. Flat affect. Discharge Diagnosis: Delirium tremens due to EtOH withdrawal Acute metabolic encephalopathy due to above Suicidal ideation Hypertensive urgency Transaminitis likely due to above Thrombocyopenia likely due to above Resolved: Elevated Lipase, HypoK, HypoMag This complex discharge took 35 minutes to complete. Patient Condition at Discharge: Stable Plan - Discharge Summary New Discharge Prescriptions: New chlordiazePOXIDE HCl [Librium] 20 mg PO TID cap Thiamine [Vitamin B-1] 100 mg PO DAILY tab Folic Acid 1 mg PO DAILY tab Multivitamins, Thera [Multivitamin (formulary)] 1 each PO DAILY tab Continue Gabapentin [Neurontin] 300 mg PO TID hydrOXYzine pamoate [Vistaril] 50 mg PO Q6H PRN PRN Reason: Anxiety cloNIDine HCL [Catapres] 0.2 mg PO BID Discharge Medication List Gabapentin [Neurontin] 300 mg PO TID 09/18/24 [History] cloNIDine HCL [Catapres] 0.2 mg PO BID 09/18/24 [History] hydrOXYzine pamoate [Vistaril] 50 mg PO Q6H PRN 09/18/24 [History] Folic Acid 1 mg PO DAILY tab 09/21/24 [Rx] Multivitamins, Thera [Multivitamin (formulary)] 1 each PO DAILY tab 09/21/24 [Rx] Thiamine [Vitamin B-1] 100 mg PO DAILY tab 09/21/24 [Rx] chlordiazePOXIDE HCl [Librium] 20 mg PO TID cap 09/21/24 [Rx] Follow up Appointment(s)/Referral(s): None,Stated [Primary Care Provider] - 1-2 days Patient Instructions/Handouts: Alcohol Intoxication (ED), Abuse of Alcohol (ED), Abuse of Alcohol (DC), At-Risk Alcohol Use (DC), Alcohol Withdrawal (ED), Polysubstance Abuse (ED), Anxiety (ED), Alcohol Use Disorder (ED) Discharge/Stand Alone Forms: AA Meetings [facility], [facility] Shelters, Community Resources, Help In The Home, Outpatient Counseling, Inp Substance Abuse Facilities Discharge Disposition: TRANSFER TO PSYCH HOSP/UNIT
== END 2024-09-21 18:07 | DRG 896 ==
LOC: EC 09:06 → 3SCARD 10:51 → 2SICU 12:38
PROVIDERS: ADMIT Internal Medicine; ATTEND Internal Medicine
DX: F10.231 Alcohol dependence with withdrawal delirium (principal); G93.41 Metabolic encephalopathy; K85.90 Acute pancreatitis without necrosis or infection, unspecified; D69.6 Thrombocytopenia, unspecified; I16.0 Hypertensive urgency; F12.10 Cannabis abuse, uncomplicated; F32.9 Major depressive disorder, single episode, unspecified; E66.9 Obesity, unspecified; K70.9 Alcoholic liver disease, unspecified; R45.851 Suicidal ideations; E83.42 Hypomagnesemia; E87.6 Hypokalemia; F41.9 Anxiety disorder, unspecified; R16.1 Splenomegaly, not elsewhere classified; F17.290 Nicotine dependence, other tobacco product, uncomplicated; K76.0 Fatty (change of) liver, not elsewhere classified; Z56.0 Unemployment, unspecified; Z78.1 Physical restraint status; Z79.899 Other long term (current) drug therapy; Z28.310 Unvaccinated for COVID-19; Z28.21 Immunization not carried out because of patient refusal; Z59.86 Financial insecurity; Z68.39 Body mass index [BMI] 39.0-39.9, adult; Z63.5 Disruption of family by separation and divorce
CPT/HCPCS: 36415; 71045; 76705; 80048; 80053; 80320; 82140; 83690; 83735; 84100; 84450; 84460; 85025; 87635; 96361; 96374; 96375; 96376; 99291

== ENCOUNTER 2024-09-21 17:43 | Inpatient (IN) | payer BC ==
[2024-09-21] MEDS ORDERED: LORazepam 2 MG/ML INJ IM PRN (17:50)
[2024-09-21] MEDS ORDERED: IBUPROFEN 600 MG TAB PO PRN (17:50)
[2024-09-21] MEDS ORDERED: haloperidoL 5 MG TAB PO PRN (17:50)
[2024-09-21] MEDS ORDERED: HALOPERIDOL LACTATE 5 MG/ML 1 ML VIAL IM PRN (17:50)
[2024-09-21] MEDS ORDERED: ACETAMINOPHEN TAB 325 MG TAB PO PRN (17:50)
[2024-09-21] MEDS ORDERED: MAG HYDROX/AL HYDROX/SIMETH 355 ML BOTTLE PO PRN (17:50)
[2024-09-21] MEDS ORDERED: MAGNESIUM HYDROXIDE 2,400 MG/30 ML CUP PO PRN (17:50)
[2024-09-21] MEDS ORDERED: LORazepam 1 MG TAB PO PRN ×3 (17:50)
[2024-09-21] MEDS ORDERED: hydrOXYzine pamoate 25 MG CAP PO PRN (17:53)
[2024-09-21] MEDS: NICOTINE 14MG/24HR PATCH TRANSDERM SCH (19:07)
[2024-09-21] MEDS: GABAPENTIN 300 MG CAP PO SCH (21:34)
[2024-09-21] MEDS: cloNIDine HCL 0.2 MG TAB PO SCH (21:35)
[2024-09-22] MEDS: MULTIVITAMINS, THERA 1 EACH TAB PO SCH (09:21)
[2024-09-22] MEDS: THIAMINE 100 MG TAB PO SCH (09:21)
[2024-09-22] MEDS: FOLIC ACID 1 MG TAB PO SCH (09:21)
[2024-09-22 11:26] LABS: ALT 29 U/L (4-49); AST 29 U/L (17-59); Albumin 4.2 g/dL (3.5-5.0); Alkaline Phosphatase 73 U/L (38-126); Bilirubin, Delta 0.2 mg/dL (0.0-0.2); Bilirubin,Unconjugated 0.6 mg/dL (0.0-1.1); Total Bilirubin 0.8 mg/dL (0.2-1.3); Total Protein 7.3 g/dL (6.3-8.2)
--- NOTE | 2024-09-22 12:28 | P.HP ---
Psychiatric H&P - . H&P Date: 09/22/24 History & Physical: Allergies Allergy/AdvReac Type Severity Reaction Status Date / Time No Known Allergies Allergy Verified 09/18/24 10:13 Vital Signs Temp 98.7 F 09/22/24 09:18 Pulse 117 H 09/22/24 09:18 Resp 16 09/21/24 18:20 BP 100/69 09/22/24 09:18 Pulse Ox 98 09/22/24 09:18 FiO2 Intake & Output 09/21/24 09/22/24 09/22/24 18:59 06:59 18:59 Weight 108.136 kg 107.2 kg Laboratory Last Values Total Bilirubin 0.8 mg/dL (0.2-1.3) 09/22/24 10:34 Conjugated Bilirubin 0.0 mg/dL (0.0-0.3) 09/22/24 10:34 Unconjugated Bilirubin 0.6 mg/dL (0.0-1.1) 09/22/24 10:34 Delta Bilirubin 0.2 mg/dL (0.0-0.2) 09/22/24 10:34 AST 29 U/L (17-59) 09/22/24 10:34 ALT 29 U/L (4-49) 09/22/24 10:34 Alkaline Phosphatase 73 U/L (38-126) 09/22/24 10:34 Total Protein 7.3 g/dL (6.3-8.2) 09/22/24 10:34 Albumin 4.2 g/dL (3.5-5.0) 09/22/24 10:34 TSH 0.510 mIU/L (0.465-4.680) 09/22/24 10:34 09/22/24 12:16 IDENTIFYING DATA: This patient is a 38-year-old male, he is , he has 2 kids, he currently lives with his mother in a house, he is unemployed HISTORY OF PRESENT ILLNESS: Patient was seen yesterday by technical proposal writer for psychiatric consultation on the medical floors and as per note "the patient presented to the hospital initially on 09/18 as a transfer from [facility]. Patient was apparently in active delirium tremens, hallucinating severe withdrawals. Patient required restraints twice according to ER report. Plug Saw Operator spoke with patient at the bedside who states that he had a recent job loss, financial difficulties, also endorsing a recent divorce. Claims that he made suicidal threats however was minimizing them. Patient's LFTs were elevated initially however has been improving. He also describes drinking alcohol, more frequently lately, claims that he tried to stop using alcohol on his own his last drink was last Monday a week ago. Claims that he was drinking about a half a gallon of liquor every other day. Also claims that he has been having more depression anxiety lately, claims that the withdrawal symptoms have been improving. He was minimizing his alcohol use, minimizing his mental health condition and his stressors. Claims that his sleep and appetite have been poor lately, he appeared to be fairly disheveled in appearance, poor hygiene and grooming. At this time patient attempted to minimize his suicidal ideations, denies any homical ideations, intent or plan. Patient denies any current auditory, visual hallucinations and denies any paranoia or delusions. Patients admits to using alcohol as noted above, also claims he smokes marijuana occasionally and also vapes nicotine products." Patient was transferred to the mental health unit overnight, he was agreeable to be seen today for psychiatric assessment. Patient appears to have mild improvement in his hygiene grooming today, has a fairly flat affect, claims that his mood is mildly improved since yesterday, claims that the withdrawal symptoms are improving. He also states that his anxiety is mildly improving. He was agreeable to try Zoloft at this time. States that his sleep continues to be on and off, appetite is mildly improving. He continues to minimize his alcohol use states that he does not need to rehab at this time and not interested in anticraving medications. He was focused on discharge. At this time he is denying any issues with appetite, denies any suicidal homicidal ideations intent or plan denies any auditory or visual hallucinations. PAST PSYCHIATRIC HISTORY: Patient has a a history of depression anxiety. patient denies being on any psychiatric medications. Patient denies any previous psychiatric hospitalizations. Patient denies any psychiatric outpatient follow-up. Patient denies any history of suicide attempts in the past. Patient claims that he does have access to guns and weapons at home and states that he is the only one the [place]. PAST MEDICAL HISTORY: As per medical H&P ALLERGIES: as per EMR. CHEMICAL DEPENDENCY HISTORY: as per HPI. FAMILY PSYCHIATRIC/SUBSTANCE USE HISTORY: Denies SOCIAL HISTORY: Patient was born and raised in [facility]. 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 He lives with his mother in a house. He has 2 kids, he is div orced. Denies any legal history. MENTAL STATUS EXAM: General Appearance: Patient appears to be overweight, unshaven, disheveled appearance, wearing glasses, stated age is alert, pleasant, and cooperative. Patient appears to have improving mildly hygiene and grooming wearing hospital gown with fair eye contact. Behavior: Patient is calmly ly sitting in chair without any agitated behavior. Minimizing, attempts to cooperate Speech: Patient's speech is fluent and nonpressured. [place], monotone Mood/Affect: Patient reports their mood is "a little better", affect is congruent and constricted/flat Suicidality/Homicidality: Patient denies having any suicidal or homicidal ideation intent or plan. Denies having any suicidal ideations Perceptions: Patient denies any visual hallucinations and denies any auditory hallucinations Though content/process: There is no evidence of any delusional thought content and thought process is linear and goal-directed. Minimizing, fairly guarded to evasive. Memory and concentration: AOX3, grossly intact for the purposes of this session. Can spell "WORLD" backwards Judgment and insight: Poor, improving mildly Strength/weakness: Patient's strength is that he has a supportive family, has housing, weaknesses patient's poor insight and substance use issues. IMPRESSIONS: Major depressive disorder, without psychotic features Alcohol use disorder, severe dependence, currently in withdrawal Cannabis use disorder, mild Nicotine dependence PLAN: -Patient is admitted under voluntary status to MHU for stabilization of psychiatric symptoms and safety. Patient has signed adult voluntary form and has not signed medication consent and is placed in patient's chart. -Medications : Start Zoloft 25 mg today, increase to 50 mg tomorrow for mood/anxiety. Trazodone 25 mg nightly for sleep/mood. Offered anticraving medication such as naltrexone however he declined it. -Ativan and Haldol PRN for agitation/aggression -Started thiamine, MVM for etoh use -CIWA protocol with Ativan PRN for ETOH withdrawal. Scheduled Librium for alcohol withdrawal with plan to taper. -Patient was counselled on substance abuse and desired to cut back on use. Will offer patient subtance use rehab, however patient is refusing at this time -Patient was informed of the risks, benefits and side effects of the medications and patient verbally consented to taking the medications. Patient signed med consent form and was placed in chart. Patient was offered medication information and accepted it -Internal Medicine consult to perform medical evaluation and physical. -NRT -nicotine patch -SW on board for discharge planning. Encourage patient to participate in groups to work on coping skills. 09/22/24 12:25
[2024-09-22] MEDS: SERTRALINE 25 MG TAB PO STA (12:40)
[2024-09-22] MEDS ORDERED: traZODone HCL 50 MG TAB PO SCH (21:00)
[2024-09-22] MEDS: traZODone HCL 50 MG TAB PO SCH (21:42)
--- NOTE | 2024-09-23 06:28 | P.MDCNMH ---
History of Present Illness H&P Date: 09/22/24 Chief Complaint: medical history The patient is a 38 y.o man with history of alcohol use. The patient vapes nicotine products. The patient does not have any complaints. 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, stitches for hx of cutting Past Anesthesia/Blood Transfusion Reactions: No Reported Reaction Smoking Status: Unknown if ever smoked Past Alcohol Use History: Abuse, Daily, Heavy Medications and Allergies Home Medications Medication Instructions Recorded Confirmed Type Gabapentin [Neurontin] 300 mg PO TID 09/18/24 09/21/24 History cloNIDine HCL [Catapres] 0.2 mg PO BID 09/18/24 09/21/24 History hydrOXYzine pamoate [Vistaril] 50 mg PO Q6H PRN 09/18/24 09/21/24 History Folic Acid 1 mg PO DAILY tab 09/21/24 09/21/24 Rx Multivitamins, Thera [Multivitamin 1 each PO DAILY tab 09/21/24 09/21/24 Rx (formulary)] Thiamine [Vitamin B-1] 100 mg PO DAILY tab 09/21/24 09/21/24 Rx chlordiazePOXIDE HCl [Librium] 20 mg PO TID cap 09/21/24 09/21/24 Rx Allergies Allergy/AdvReac Type Severity Reaction Status Date / Time No Known Allergies Allergy Verified 09/18/24 10:13 Physical Exam Vitals: Vital Signs Temp Pulse Resp BP Pulse Ox 09/22/24 21:00 91 16 119/84 97 09/22/24 09:18 98.7 F 117 H 100/69 98 Intake and Output 09/22/24 09/22/24 09/23/24 14:59 22:59 06:59 Other: Weight 107.2 kg - Constitutional General appearance: no acute distress - Respiratory Respiratory: bilateral: CTA - Cardiovascular Rhythm: regular - Gastrointestinal General gastrointestinal: normal bowel sounds - Integumentary Integumentary: normal - Musculoskeletal Musculoskeletal: gait normal - Psychiatric Psychiatric: appropriate affect Cranial Nerve Examination - Cranial Nerves Cranial Nerve II- Optic: Intact Cranial Nerve III- Oculomotor: Intact Cranial Nerve IV- Trochlear: Intact Cranial Nerve V- Trigeminal: Intact Cranial Nerve - Abducens: Intact Cranial Nerve VII- Facial: Intact Cranial Nerve VIII- Auditory: Intact Cranial Nerve IX- Glossopharyngeal: Intact Cranial Nerve X- Vagus: Intact Cranial Nerve XI- Accessory: Intact Cranial Nerve XII- Hypoglossal: Intact Assessment and Plan (1) Alcohol abuse Current Visit: Yes Status: Acute Code(s): F10.10 - ALCOHOL ABUSE, UNCOMPLICATED SNOMED Code(s): 48696914 (2) Depression Current Visit: Yes Status: Acute Code(s): F32.A - DEPRESSION, UNSPECIFIED SNOMED Code(s): 26779058 Plan: Continue current treatment
[2024-09-23 06:29] LABS: Chol/HDL Ratio 3.55 Ratio; LDL Cholesterol,Calculated 103.9 mg/dL (0.0-131.0); VLDL Calculation 19.68 mg/dL (5.00-40.00)
[2024-09-23] MEDS: SERTRALINE 50 MG TAB PO SCH (08:26)
--- NOTE | 2024-09-23 12:09 | P.PN ---
Progress Note - Text Progress Note Date: 09/23/24 IntervalHistory: Patient was seen today taking part in group. He was agreeable to speak to [facility] in the office today. He continues to be somewhat superficial, did not endorse any issue at all with his medications, states that he slept about 5 hours last night. We spoke about increasing the trazodone. Claims that his mood and anxiety been mildly improving since yesterday. He continues have a very constricted affect. He did make mention that he does have a [place] for his guns in the trailer and offered to give the tijer[place] to his ex-girlfriend to secure the guns no weapons. He will be going to his parents upon discharge, we will ensure that it is a safe environment for him. He claims that it is. States that he is not interested in going to rehab not interested in anticraving medications for alcohol. Claims that his appetite is improving. Denying any suicidal homicidal ideations intent or plan denying any auditory or visual hallucinations. MENTAL STATUS EXAM: General Appearance: Patient appears to be overweight, unshaven, wearing glasses, stated age is alert, pleasant, and superficial/cooperative. Patient appears to have improving mildly hygiene and grooming wearing hospital gown with fair eye contact. Behavior: Patient is calmly ly sitting in chair without any agitated behavior. Minimizing, superficially cooperative Speech: Patient's speech is fluent and nonpressured. [place], monotone, improving mildly Mood/Affect: Patient reports their mood is "better", affect is congruent and constricted/flat, improving mildly Suicidality/Homicidality: Patient denies having any suicidal or homicidal ideation intent or plan. Denies having any suicidal ideations Perceptions: Patient denies any visual hallucinations and denies any auditory hallucinations Though content/process: There is no evidence of any delusional thought content and thought process is linear and goal-directed. Memory and concentration: AOX3, grossly intact for the purposes of this session Judgment and insight: Poor, improving mildly IMPRESSIONS: Major depressive disorder, without psychotic features Alcohol use disorder, severe dependence, currently in withdrawal Cannabis use disorder, mild Nicotine dependence PLAN: -Patient is admitted under voluntary status to MHU for stabilization of psy chiatric symptoms and safety. Patient has signed adult voluntary form and has not signed medication consent and is placed in patient's chart. -Medications : Zoloft 50 mg daily for mood/anxiety. Increase trazodone 50 mg nightly for sleep/mood. anticraving medication such as naltrexone however he declined it. -Ativan and Haldol PRN for agitation/aggression -Started thiamine, MVM for etoh use -CIWA protocol with Ativan PRN for ETOH withdrawal. Scheduled Librium for alcohol withdrawal with plan to taper. Last dose of Librium scheduled for tomorrow morning. -NRT -nicotine patch -SW on board for discharge planning. Encourage patient to participate in groups to work on coping skills. Likely discharge her Monday, social services specialist will ensure that patient's parents home is safe no guns weapons. Also patient will give his [place] to the trailer to his ex-girlfriend so she can verify that the weapons are secured prior to discharge. he is not interested in rehab
[2024-09-23] MEDS: traZODone HCL 50 MG TAB PO SCH (20:49)
--- NOTE | 2024-09-24 11:53 | P.PN ---
Progress Note - Text Progress Note Date: 09/24/24 IntervalHistory: Patient was seen today taking part in group. He was agreeable to speak to [facility]. He continues to be somewhat superficial, this is improving. improving hygiene and grooming. deneis any overnight issues, was fairly contrete.. Claims that his mood and anxiety been mildly improving since yesterday. He will be going to his parents upon discharge, we will ensure that it is a safe environment for him. SW called them and ensured that the guns and weapons will be secured. States that he is not interested in going to rehab not interested in anticraving medications for alcohol. Claims that his appetite is improving. Denying any suicidal homicidal ideations intent or plan denying any auditory or visual hallucinations. MENTAL STATUS EXAM: General Appearance: Patient appears to be overweight, unshaven, wearing glasses, stated age is alert, pleasant, attempts to cooperate. Patient appears to have improving mildly hygiene and grooming wearing hospital gown with fair eye contact. Behavior: Patient is calmly ly sitting in chair without any agitated behavior. Speech: Patient's speech is fluent and nonpressured. [place], monotone, improving mildly Mood/Affect: Patient reports their mood is "better", affect is congruent and constricted/flat, improving mildly Suicidality/Homicidality: Patient denies having any suicidal or homicidal ideation intent or plan. Denies having any suicidal ideations Perceptions: Patient denies any visual hallucinations and denies any auditory hallucinations Though content/process: There is no evidence of any delusional thought content and thought process is linear and goal-directed. Memory and concentration: AOX3, grossly intact for the purposes of this session Judgment and insight: improving mildly IMPRESSIONS: Major depressive disorder, without psychotic features Alcohol use disorder, severe dependence, currently in withdrawal Cannabis use disorder, mild Nicotine dependence PLAN: -Patient is admitted under voluntary status to MHU for stabilization of psychiatric symptoms and safety. Patient has signed adult voluntary form and has not signed medication consent and is placed in patient's chart. -Medications : Zoloft 50 mg daily for mood/anxiety. trazodone 50 mg nightly for sleep/mood. anticraving medication such as naltrexone however he declined it. -Ativan and Haldol PRN for agitation/aggression -thiamine, MVM for etoh use -CIWA protocol with Ativan PRN for ETOH withdrawal. Scheduled Librium for alcohol withdrawal with plan to taper. Last dose of Librium scheduled for tomorrow morning. -NRT -nicotine patch -SW on board for discharge planning. Encourage patient to participate in groups to work on coping skills. Likely discharge tomorrow, hospital social worker will ensure that patient's parents home is safe no guns weapons. patient miya allegedly already removed the guns from his trailer.
[2024-09-24 22:30] VITALS: TEMP 98
[2024-09-25] MEDS: NICOTINE GUM (POLACRILEX) 2 MG GUM BUCCAL PRN (08:44)
--- NOTE | 2024-09-25 11:06 | P.DS ---
Providers Date of admission: 09/21/24 18:17 Expected date of discharge: 09/25/24 Attending physician: Jaswinder Lopez MD Consults: 09/21/24 17:50 Consult Physician Routine Consulting Provider: Jay Willard Consult Reason/Comments: History and Physical, New Admission Do you want consulting provider notified?: Yes Primary care physician: Stated None - Discharge Diagnosis(es) (1) Major depressive disorder without psychotic features Current Visit: Yes Status: Acute Priority: High (2) Alcohol use disorder, severe, dependence Current Visit: Yes Status: Acute Priority: High (3) Cannabis use disorder, mild, abuse Current Visit: Yes Status: Acute Priority: Medium (4) Nicotine dependence Current Visit: Yes Status: Acute Priority: Low Hospital Course: Admission HPI: Admission note was completed by real estate underwriter "this patient is a 38-year-old male, he is , he has 2 kids, he currently lives with his mother in a house, he is unemployed. Patient was seen yesterday by real estate underwriter for psychiatric consultation on the medical floors and as per note "the patient presented to the hospital initially on 09/18 as a transfer from [facility]. Patient was apparently in active delirium tremens, hallucinating severe withdrawals. Patient required restraints twice according to ER report. [employer] spoke with patient at the bedside who states that he had a recent job loss, financial difficulties, also endorsing a recent divorce. Claims that he made suicidal threats however was minimizing them. Patient's LFTs were elevated initially however has been improving. He also describes drinking alcohol, more frequently lately, claims that he tried to stop using alcohol on his own his last drink was last Monday a week ago. Claims that he was drinking about a half a gallon of liquor every other day. Also claims that he has been having more depression anxiety lately, claims that the withdrawal symptoms have been improving. He was minimizing his alcohol use, minimizing his mental health condition and his stressors. Claims that his sleep and appetite have been poor lately, he appeared to be fairly disheveled in appearance, poor hygiene and grooming. At this time patient attempted to minimize his suicidal ideations, denies any homical ideations, intent or plan. Patient denies any current auditory, visual hallucinations and denies any paranoia or delusions. Patients admits to using alcohol as noted above, also claims he smokes marijuana occasionally and also vapes nicotine products." Patient was transferred to the mental health unit overnight, he was agreeable to be seen today for psychiatric assessment. Patient appears to have mild improvement in his hygiene grooming today, has a fairly flat affect, claims that his mood is mildly improved since yesterday, claims that the withdrawal symptoms are improving. He also states that his anxiety is mildly improving. He was agreeable to try Zoloft at this time. States that his sleep continues to be on and off, appetite is mildly improving. He continues to minimize his alcohol use states that he does not need to rehab at this time and not interested in anticraving medications. He was focused on d ischarge. At this time he is denying any issues with appetite, denies any suicidal homicidal ideations intent or plan denies any auditory or visual hallucinations." Hospital course: Upon admission to the unit patient was directable and agreeable to commence treatment and signed adult voluntary form. Patient was initially depressed, isolative however with time and treatment patient got along well with other patients on the unit and followed unit protocol. Patient was compliant with the medications and denied any side effects throughout hospital course. Patient was started on Zoloft increased to dose of 50 mg daily for mood/anxiety, trazodone 50 mg nightly as needed for sleep, patient was offered anticraving medications for alcohol however refused. Patient spoke of his stressors and engaged in therapy both group/activity therapy. Patient was also seen by medical team for history and physical exam. Throughout the course of the hospitalization patient gradually improved with regards to mood, anxiety, suicidal thoughts, sleep and returned back to their baseline level of functioning. On the day of discharge patient denied any suicidal or homicidal ideations intent or plan denied any auditory or visual hallucinations. Patient endorsed wanting to live for their health and family/kids. The patient denied any access to guns or weapons. Patient denied any paranoia and did not endorse any delusions. Patient does have a significant history of substance abuse and was counseled on abstaining from all substances including alcohol and marijuana. Patient was offered however declined inpatient substance-abuse rehab. Patient elected to do outpatient substance use treatment program through their outpatient provider. Patient also declined anticraving medications. Patient was also counseled on the medications and need for regular compliance and was encouraged to follow-up with their outpatient appointment for mental health and also for primary care. Prior to discharge a family meeting will be arranged by nephrology social worker to answer any questions and ensure safety upon discharge incuding making sure that guns/weapons are either removed from the home or locked away. protective services social worker to ensure that guns weapons are secured safe home environment, patient will be discharged to [facility] house today. Mental status exam: General Appearance: Patient appears to be mildly overweight, unshaven, wearing glasses, stated age is alert, pleasant, and cooperative. Patient is in no acute distress and has improved hygiene and grooming Behavior: Patient is calmly seated without any agitated behavior. Speech: Patient's speech is fluent and nonpressured. Mood/Affect: Patient reports their mood is "good", affect is congruent and euthymic. Suicidality/Homicidality: Patient denies having any suicidal or homicidal ideation intent or plan. Perceptions: Patient denies any auditory or visual hallucinations. Though content/process: There is no evidence of any delusional thought content and thought process is linear and goal-directed. More future oriented Memory and concentration: AOX3, grossly intact for the purposes of this session. Can spell "WORLD" backwards correctly. Judgment and insight: improved with guarded prognosis Impression: Major depressive disorder without psychotic features Alcohol use disorder severe dependence Cannabis use disorder mild abuse Nicotine dependence Plan: -Continue with discharge today as patient has improved and stabilized psychiatrically and is not currently an imminent threat to themself and/or others. Patient will remain at chronically elevated risk for harm to self and/or others due to their impulsivity and substance abuse. -Continue medications: Zoloft 50 mg daily for mood/anxiety, trazodone 50 mg nightly as needed for sleep -Patient was counseled on the need for medication compliance and appropriate follow-up at mental health and also primary care for medical issues. Patient verbalized understanding and agreed. -Social work to arrange for and conduct family meeting to ensure safety upon discharge and answer any questions/concerns. also to ensure safe home environment that guns/weapons are either removed from the home or locked away. Social work also to arrange for patients follow up appointments for psychiatric care along with follow up with primary care provider. -Patient counseled on abstaining from recreational drugs and marijuana and alcohol. Was informed/educated on the adverse effects on their physical and mental health. Patient verbally agreed and understood. Patient was offered substance abuse treatment however declined at this time. -Patient was instructed to return to the hospital or seek immediate medical care if their psychiatric or medical symptoms do worsen or reoccur. Allergies Allergy/AdvReac Type Severity Reaction Status Date / Time No Known Allergies Allergy Verified 09/18/24 10:[address] Glu mg/dL 97 mg/dL 09/22/24 10:34 Hemoglobin A1c 5.0 % (<=6.0) 09/22/24 10:34 Total Bilirubin 0.8 mg/dL (0.2-1.3) 09/22/24 10:34 Conjugated Bilirubin 0.0 mg/dL (0.0-0.3) 09/22/24 10:34 Unconjugated Bilirubin 0.6 mg/dL (0.0-1.1) 09/22/24 10:34 Delta Bilirubin 0.2 mg/dL (0.0-0.2) 09/22/24 10:34 AST 29 U/L (17-59) 09/22/24 10:34 ALT 29 U/L (4-49) 09/22/24 10:34 Alkaline Phosphatase 73 U/L (38-126) 09/22/24 10:34 Total Protein 7.3 g/dL (6.3-8.2) 09/22/24 10:34 Albumin 4.2 g/dL (3.5-5.0) 09/22/24 10:34 Triglycerides 98.40 mg/dL (0.00-149.00) 09/22/24 10:34 Cholesterol 172.00 mg/dL (0.00-200.00) 09/22/24 10:34 LDL Cholesterol, Calc 103.9 mg/dL (0.0-131.0) 09/22/24 10:34 VLDL Cholesterol, Calc 19.68 mg/dL (5.00-40.00) 09/22/24 10:34 HDL Cholesterol 48.40 mg/dL (40.00-60.00) 09/22/24 10:34 Cholesterol/HDL Ratio 3.55 Ratio 09/22/24 10:34 TSH 0.510 mIU/L (0.465-4.680) 09/22/24 10:34 Vital Signs Temp 98.0 F 09/24/24 22:29 Pulse 101 H 09/24/24 22:29 Resp 17 09/24/24 22:29 BP 138/89 09/24/24 22:29 Pulse Ox 100 09/24/24 22:29 FiO2 Patient Condition at Discharge: Stable Plan - Discharge Summary New Discharge Prescriptions: New Nicotine 14Mg/24Hr Patch [Habitrol] 1 patch TRANSDERM DAILY 14 Days #14 patch Ibuprofen [Motrin] 600 mg PO Q6HR PRN tab PRN Reason: Moderate Pain (Scale 4 To 6) Nicotine Gum (Polacrilex) [Nicorette] 2 mg BUCCAL Q4HR PRN 30 Days #180 pieceofgum PRN Reason: Nicotine Cravings Sertraline [Zoloft] 50 mg PO DAILY 30 Days #30 tab traZODone HCL [Desyrel] 50 mg PO HS PRN 14 Days #14 tab PRN Reason: Insomnia Continue Thiamine [Vitamin B-1] 100 mg PO DAILY tab Folic Acid 1 mg PO DAILY tab Multivitamins, Thera [Multivitamin (formulary)] 1 each PO DAILY tab cloNIDine HCL [Catapres] 0.2 mg PO BID 30 Days #60 tab Gabapentin [Neurontin] 300 mg PO TID 30 Days #90 cap Discontinued hydrOXYzine pamoate [Vistaril] 50 mg PO Q6H PRN PRN Reason: Anxiety chlordiazePOXIDE HCl [Librium] 20 mg PO TID cap Discharge Medication List Folic Acid 1 mg PO DAILY tab 09/21/24 [Rx] Multivitamins, Thera [Multivitamin (formulary)] 1 each PO DAILY tab 09/21/24 [Rx] Thiamine [Vitamin B-1] 100 mg PO DAILY tab 09/21/24 [Rx] Gabapentin [Neurontin] 300 mg PO TID 30 Days #90 cap 09/25/24 [Rx] Ibuprofen [Motrin] 600 mg PO Q6HR PRN tab 09/25/24 [Rx] Nicotine 14Mg/24Hr Patch [Habitrol] 1 patch TRANSDERM DAILY 14 Days #14 patch 09/25/24 [Rx] Nicotine Gum (Polacrilex) [Nicorette] 2 mg BUCCAL Q4HR PRN 30 Days #180 pieceofgum 09/25/24 [Rx] Sertraline [Zoloft] 50 mg PO DAILY 30 Days #30 tab 09/25/24 [Rx] cloNIDine HCL [Catapres] 0.2 mg PO BID 30 Days #60 tab 09/25/24 [Rx] traZODone HCL [Desyrel] 50 mg PO HS PRN 14 Days #14 tab 09/25/24 [Rx] Patient Instructions/Handouts: How to Stop Smoking (DC), Depression (DC), Abuse of Alcohol (DC) Activity/Diet/Wound Care/Special Instructions: [facility] Discharge Info Avoid the use of street drugs and alcohol. Take all medications as prescribed. When you are in need of refills on your medications, please contact your outpatient medical provider and/or outpatient psychiatrist. Please go to your scheduled outpatient appointments for aftercare treatment. If symptoms return or become worse, call the crisis line at or and/or visit the nearest emergency room for assistance. National Suicide and Crisis Lifeline - call or text 407 Discharge/Stand Alone Forms: AA Meetings Maryuri Leiva Discharge Disposition: HOME SELF-CARE
[2024-09-25 11:07] VITALS: BP 111/70; PULSE 103; RESP 20
== END 2024-09-25 12:57 | disposition home or self-care (01) | DRG 881 ==
LOC: 3MHU 18:17
PROVIDERS: ADMIT Psychiatry & Neurology Psychiatry; ATTEND Psychiatry & Neurology Psychiatry
DX: F32.9 Major depressive disorder, single episode, unspecified (principal); F10.231 Alcohol dependence with withdrawal delirium; F12.10 Cannabis abuse, uncomplicated; R45.851 Suicidal ideations; F17.290 Nicotine dependence, other tobacco product, uncomplicated; F41.9 Anxiety disorder, unspecified; Z56.0 Unemployment, unspecified; Z78.1 Physical restraint status; Z79.899 Other long term (current) drug therapy; Z91.52 Personal history of nonsuicidal self-harm; Z28.310 Unvaccinated for COVID-19; Z28.21 Immunization not carried out because of patient refusal; Z71.89 Other specified counseling; Z71.41 Alcohol abuse counseling and surveillance of alcoholic; Z71.51 Drug abuse counseling and surveillance of drug abuser
CPT/HCPCS: 80061; 80076; 83036; 84443